=== PATIENT | female | born 1940 | race Asian ===

== ENCOUNTER 2022-11-02 17:43 | Inpatient (IN) ==
--- NOTE | 2022-11-02 18:42 | Emergency Department Note ---
History of Present Illness General Chief Complaint: Abnormal Labs/Diagnostic Testing Stated Complaint: REF BY DOC,NEW MEDS,ABNORMAL LAB Time Seen by Provider: 11/02/22 18:09 History of Present Illness Provider Complaint: + abnormal lab Description of abnormal result: elevated K BUN and Cr Associated symptoms: no fever, no chills, no chest pain, no shortness of breath, no rash, no malaise or no abdominal pain HPI narrative: [facility] Home Medications Medication Instructions Recorded Confirmed Type No Known Home Medications 11/02/22 11/02/22 History Past Med/Surg History Medical History Arthritis CKD (chronic kidney disease) Gout HTN (hypertension) Social History Smoking Status: Never smoker Preferred Language: Luxembourgish Feels Safe at Home: Yes Physical Exam Vital Signs: Vital Signs - 24 hr 11/02/22 17:49 11/02/22 18:08 11/02/22 18:19 Pulse Rate 91 H 86 85 Pulse Rate [Right Brachial] Pulse Rhythm Regular Regular Pulse Rhythm [Righ t Brachial] Pulse Strength Normal Pulse Strength [Ri ght Brachial] Respiratory Rate 20 18 Respiratory Effort / Characteristics Non-Labored Sponta neous Respiratory Depth Normal Respiratory Patter n Regular Blood Pressure 158/80 H Blood Pressure [Ri ght Arm] Blood Pressure Lila n 106 Blood Pressure Lila n [Right Arm] Blood Pressure Pos ition Sitting Blood Pressure Pos ition [Right Arm] Pulse Oximetry 96 95 Oxygen Delivery Me thod Room Air Room Air Sepsis Recent Feve r Within 48 Hours No Sepsis New/Unexpla ined Change in Men ben Status No Sepsis Action Take n by Nursing No Action Required 11/02/22 18:41 Pulse Rate Pulse Rate [Right Brachial] 72 Pulse Rhythm Pulse Rhythm [Righ t Brachial] Regular Pulse Strength Pulse Strength [Ri ght Brachial] Normal Respiratory Rate 19 Respiratory Effort / Characteristics Non-Labored Sponta neous Respiratory Depth Normal Respiratory Patter n Regular Blood Pressure Blood Pressure [Ri ght Arm] 171/72 H Blood Pressure Lila n Blood Pressure Lila n [Right Arm] 105 Blood Pressure Pos ition Blood Pressure Pos ition [Right Arm] Lying Pulse Oximetry 94 Oxygen Delivery Me thod Room Air Sepsis Recent Feve r Within 48 Hours Sepsis New/Unexpla ined Change in Men ben Status Sepsis Action Take n by Nursing Physical Exam: Physical Exam GENERAL: oriented to person, place, and time. appears well-developed and well- nourished. HENT: Exam performed. - Head: Normocephalic and atraumatic. EYES: Conjunctivae and EOM are normal. Right eye exhibits no discharge. Left eye exhibits no discharge. No scleral icterus. NECK: Normal range of motion. Neck supple. No JVD present. CV: Normal rate, regular rhythm, normal heart sounds and intact distal pulses. There is no peripheral edema. Palpable radial pulses bue. PULM/CHEST: Effort normal and breath sounds normal. No respiratory distress. No stridor. no wheezes. no rales. ABD: The abdomen is soft. There is no tenderness. NEURO: Motor and sensation grossly intact. SKIN: Skin is warm and dry. He is not diaphoretic. PSYCH: normal mood and affect. Behavior is normal. Judgment and thought content normal. Course Course 1808: The patient was evaluated in room C11. A complete history and physical exam was performed Administered Medications Discontinued Medications Amlodipine Besylate (Amlodipine Besylate 5 Mg Tab) 5 mg PO NOW ONE Stop: 11/02/22 18:48 Last Admin: 11/02/22 18:51 Dose: 5 mg Documented By: CANDY Medical Decision Making Medical Records Attestation: I reviewed the patient's medical records. External medical records. 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 Patient had blood work today which showed BUN of 48 creatinine of 2.4 potassium of 6.1. Laboratory Data Attestation: I reviewed the patient's lab results. 11/02/22 18:07 Lab Results 11/02/22 Range/Units 18:07 Sodium 137 (136-145) mmol/L Potassium 5.8 H (3.5-5.1) mmol/L Chloride 109 H (98-107) mmol/L Carbon Dioxide 18 L (21-32) mmol/L Anion Gap 10 (3-11) BUN 51 H (6-23) mg/dl Creatinine 2.39 H (0.6-1.2) mg/dl Est Cr Clr Drug Dosing 15.0 ml/min Est GFR ( Amer) 21.5 ml/min Est GFR (Non-Af Amer) 18.5 ml/min BUN/Creatinine Ratio 21.3 H (10-20) Glucose 129 H (70-99(Fasting)) mg/dl Calcium 9.2 (8.6-10.3) mg/dl ECG Data Attestation: I personally reviewed and interpreted this ECG as follows: Indication: other (arrythmia) Rate (beats per minute): 87 Rhythm: normal sinus Findings: no peaked T-waves, no ST depression, no ST elevation or no prolonged QT Additional Comments: QRS 68 MDM Narrative Cardiac monitoring: An order was placed for continuous cardiac monitoring. The monitor shows a rate of 90 with sinus rhythm interpreted by me Vital signs stable. Labs show potassium 5.8. Discussed the case with the patient's crusher foreman Dr. Coronado recommends admission for treatment for hyperkalemia and she will evaluate the patient in the inpatient setting. Dr. Gómez [facility] hospitalist was made aware. Patient and family are in agreement. Impression & Plan Acute hyperkalemia Critical Care Time Critical Care Time: Yes Total Critical Care Time: 45 I have personally spent greater than 45 minutes of critical care time in the direct management of this patient. This includes bedside care, interpretation of diagnostic studies, and testing, discussion with consultants, patient, and family members, and other required patient management activities. This 45 minutes is in excess of all separately billable procedures. Discharge Plan Visit Data Chief Complaint: Abnormal Labs/Diagnostic Testing Stated Complaint: REF BY DOC,NEW MEDS,ABNORMAL LAB ED Provider: Walter Headley Discharge Problem: Acute hyperkalemia Patient Disposition: Admitted As Inpatient Forms Stand Alone Forms: My [facility] Prescriptions Prescriptions: No Action No Known Home Medications Referrals Referrals: Guido Real MD [Physician] -
[2022-11-02 18:45] LABS: BUN Creatinine Ratio 21.3 (10-20); Calcium 9.2 mg/dl (8.6-10.3); Est GFR (African American) 21.5 ml/min; Est GFR (Non-African American) 18.5 ml/min; Potassium 5.8 mmol/L (3.5-5.1)
[2022-11-02] MEDS ORDERED: amLODIPine BESYLATE 5 MG TAB PO ONE (18:47)
[2022-11-02] MEDS ORDERED: DEXTROSE 50% 50 ML SYRINGE IV STA (19:43)
[2022-11-02] MEDS ORDERED: STAT IV STA (19:43)
[2022-11-02] MEDS ORDERED: INSULIN HUMAN REGULAR PER UNIT 10 UNITS in SYRINGE 9.9 ML IV STA (19:43)
[2022-11-02] MEDS ORDERED: CALCIUM GLUCONATE 10% 1,000 MG in DEXTROSE 5% 50 ML IV STA (19:43)
[2022-11-02] MEDS ORDERED: SODIUM CHLORIDE 0.9% 1000ML 1,000 ML IV ONE (20:19)
--- NOTE | 2022-11-02 23:45 | History & Physical Report ---
Date of Service November 02, 2022 Assessment & Plan (1) Acute hyperkalemia: Plan: Persistent hyperkalemia for the last 2 weeks ARF on CKD NAGMA secondary to above HTN, slightly elevated hyperlipidemia, statin Rx prediabetes, outpatient hemoglobin A1c of 6 from August 2022 Medical telemetry Baseline UA Monitor serum potassium, creatinine response to IVF Sodium bicarb 1 dose now Hold enalapril, Lasix for now Low potassium diet Nephrology consult Re: Hyperkalemia, ARF on CKD DVT prophylaxis. Heparin subcu Full code Patient daughter requesting updates from providers. Ms. Nahid Sanabria, contact #[phone]. Text document was generated using [employer] voice recognition software. It may contain grammatical or spelling errors. Kindly contact undersigned for clarification of any documentation item in question. History of Present Illness Chief Complaint: abormal blood work Primary Care Provider: Chata Eli PA-C History obtained from patient, family, and records. Medical history significant for HTN, hyperlipidemia, prediabetes, CRI (baseline creatinine 2s), gout. Patient started by [facility] agent on Aldactone for BP control 3 months ago. Outpatient renal ultrasound showed bilateral renal cortical echogenicity consistent with chronic kidney disease. Partially imaged hepatic cysts and simple appearing renal cyst and do not require follow-up. Serum potassium of 6.2, creatinine of 2.5 noted on outpatient blood work last 10/20/22. Patient denies chest pain, SOB, fluid retention, headache. Denies NSAID intake. Patient instructed to stop Aldactone. Lasix added to BP regimen interim. SBP at home 1 20-1 40s as per patient. Outpatient follow-up blood work today at the office noted to have abnormal results. Serum potassium 6.1, CO2 20, creatinine 2.4. Patient denies any symptoms. Patient directed to ER for evaluation. Calcium gluconate, IV insulin with dextrose administered at the ER. 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 Allergies Allergy/AdvReac Type Severity Reaction Status Date / Time No Known Allergies Allergy Unverified 11/02/22 21:03 Home Medications Medication Instructions Recorded Confirmed Type allopurinol 100 mg tablet 100 mg PO QAM 11/02/22 11/02/22 History amlodipine 5 mg tablet 5 mg PO AMHS 11/02/22 11/02/22 History cholecalciferol (vitamin D3) 125 125 mcg PO QAM 11/02/22 11/02/22 History mcg (5,000 unit) tablet (Vitamin D3) enalapril maleate 20 mg tablet 20 mg PO AMHS 11/02/22 11/02/22 History furosemide 20 mg tablet 20 mg PO Q OTHER DAY 11/02/22 11/02/22 History magnesium sulfate 100 mg capsule 100 mg PO QAM 11/02/22 11/02/22 History multivitamin 1 tab PO QAM 11/02/22 11/02/22 History rosuvastatin 10 mg tablet 10 mg PO QAM 11/02/22 11/02/22 History Past Med/Surg History Medical History Arthritis CKD (chronic kidney disease) Gout HTN (hypertension) Social History Smoking Status: Never smoker Second Hand Exposure: No; Do You Dip or Chew Tobacco: No; Tobacco Cessation Education Requested by Patient: No Hx Alcohol Use: No Hx Substance Use: No Preferred Language: Urdu Communication Ability: Effective Sales Agent Required: No Beliefs That Will Affect Care: None Current Living Situation: Family Other Information That Helps Us Care for You: No Feels Safe at Home: Yes Safety Concerns: Feels Safe At This Time Assistive Devices: Cane Review of Systems Review of Systems: As per HPI, all other systems reviewed and negative Physical Exam Physical Exam: GENERAL: Comfortable, pleasant, looks younger than stated age, no respiratory distress SKIN: Normal color, warm HEENT: Gervais palpebral conjunctivae, no ptosis, dry buccal mucosa NECK : Supple, no tenderness CHEST : CTA, no tenderness HEART : RRR, systolic murmur ABDOMEN: Some distention, nontender EXTREMITIES : No LE swelling/tenderness, no other conspicuous deformities noted NEUROLOGIC : Coherent, no facial asymmetry, no other gross focality Results & Data Results & Data Vital Signs (Past 12 Hours) Vital Signs Pulse Pulse Resp BP BP Pulse Ox O2 Del Method 11/02/22 22:05 71 11/02/22 22:00 64 18 142/63 H 95 11/02/22 21:30 85 20 152/57 H 95 11/02/22 21:00 94 H 18 171/72 H 97 11/02/22 20:30 82 18 167/66 H 94 11/02/22 20:00 67 21 147/57 H 94 11/02/22 19:30 72 18 147/59 H 95 11/02/22 18:55 85 33 H 167/74 H 11/02/22 18:30 90 25 H 99 11/02/22 18:28 91 H 20 171/72 H 97 11/02/22 18:08 87 20 11/02/22 18:41 72 19 171/72 H 94 Room Air 11/02/22 18:19 85 18 95 Room Air 11/02/22 18:08 86 11/02/22 17:49 91 H 20 158/80 H 96 Room Air Laboratory Results Laboratory Results Sodium 137 mmol/L (136-145) 11/02/22 18:07 Potassium 5.8 mmol/L (3.5-5.1) H 11/02/22 18:07 Chloride 109 mmol/L (98-107) H 11/02/22 18:07 Carbon Dioxide 18 mmol/L (21-32) L 11/02/22 18:07 Anion Gap 10 (3-11) 11/02/22 18:07 BUN 51 mg/dl (6-23) H 11/02/22 18:07 Creatinine 2.39 mg/dl (0.6-1.2) H 11/02/22 18:07 Est Cr Clr Drug Dosing 15.0 ml/min 11/02/22 18:07 Est GFR ( Amer) 21.5 ml/min 11/02/22 18:07 Est GFR (Non-Af Amer) 18.5 ml/min 11/02/22 18:07 BUN/Creatinine Ratio 21.3 (10-20) H 11/02/22 18:07 Glucose 129 mg/dl (70-99(Fasting)) H 11/02/22 18:07 POC Glucose 88 mg/dl (70-99) 11/02/22 22:17 Calcium 9.2 mg/dl (8.6-10.3) 11/02/22 18:07 SARS-CoV-2, RNA, NAAT NEGATIVE (NEGATIVE) 11/02/22 20:23 Diagnostic Findings Chest x-ray as per my interpretation borderline cardiomegaly, atelectasis EKG as per my interpretation :Rate 85, NSR, normal axis, no ischemia
[2022-11-02] MEDS ORDERED: traMADol HCL 50 MG TABLET PO PRN (23:49)
[2022-11-03 00:22] LABS: Base Excess VBG -5.4 mEq/L; HCO3 VBG 19 mmol/L; PCO2 VBG 34 mmHg (38-50); PO2 VBG 41 mmHg; pH VBG 7.36 (7.36-7.41)
[2022-11-03 00:33] LABS: Basophils # (auto) 0.02 K/uL (0-0.2); Basophils % (auto) 0.3 %; Eosinophils # (auto) 0.18 K/uL (0-0.50); Eosinophils % (auto) 2.5 %; Hematocrit (blood only) 39.5 % (37.0-47.0); Hemoglobin 13.5 g/dl (12.0-16.0); Immature Granulocytes # (auto) 0.03 K/uL (0.01-0.20); Immature Granulocytes % (auto) 0.4 %; Lymphocytes # (auto) 1.44 K/uL (1.2-3.4); Lymphocytes % (auto) 20.3 %; Mean Corpuscular Hgb Conc 34.2 g/dL (32.0-36.0); Mean Corpuscular Volume 84.8 fL (80.0-100.0); Mean Platelet Volume 12.1 fL (9.4-12.4); Monocytes # (auto) 0.41 K/uL (0.11-0.59); Monocytes % (auto) 5.8 %; Neutrophils # (auto) 5.03 K/uL (1.40-6.50); Neutrophils % (auto) 70.7 %; Platelet Count 207 K/uL (130-400); RDW Coefficient of Variation 14.5 % (11.5-14.5); RDW Standard Deviation 44.1 fL (36.4-46.3); Red Blood Count 4.66 M/uL (4.20-5.40); White Blood Count 7.11 K/ul (4.8-10.8)
[2022-11-03 00:44] LABS: BUN Creatinine Ratio 21.9 (10-20); Calcium 9.3 mg/dl (8.6-10.3); Est GFR (African American) 23.2 ml/min; Est GFR (Non-African American) 20.1 ml/min; Potassium 5.4 mmol/L (3.5-5.1)
[2022-11-03] MEDS ORDERED: SODIUM BICARB 8.4% INJ 50 MEQ/50 ML SYR IV STA (02:44)
[2022-11-03] MEDS: HEPARIN SOD 5,000 UNIT/0.5 ML VIAL SQ SCH ×3 (05:12→22:23)
[2022-11-03 06:31] LABS: Basophils # (auto) 0.02 K/uL (0-0.2); Basophils % (auto) 0.3 %; Eosinophils # (auto) 0.23 K/uL (0-0.50); Eosinophils % (auto) 3.8 %; Hematocrit (blood only) 35.6 % (37.0-47.0); Hemoglobin 12.1 g/dl (12.0-16.0); Immature Granulocytes # (auto) 0.02 K/uL (0.01-0.20); Immature Granulocytes % (auto) 0.3 %; Lymphocytes # (auto) 1.46 K/uL (1.2-3.4); Lymphocytes % (auto) 23.9 %; Mean Corpuscular Hemoglobin 28.5 pg (25.0-34.0); Mean Platelet Volume 12.1 fL (9.4-12.4); Monocytes # (auto) 0.32 K/uL (0.11-0.59); Monocytes % (auto) 5.2 %; Neutrophils # (auto) 4.07 K/uL (1.40-6.50); Neutrophils % (auto) 66.5 %; Platelet Count 176 K/uL (130-400); RDW Coefficient of Variation 14.1 % (11.5-14.5); RDW Standard Deviation 42.9 fL (36.4-46.3); Red Blood Count 4.24 M/uL (4.20-5.40); White Blood Count 6.12 K/ul (4.8-10.8)
[2022-11-03 06:36] LABS: BUN Creatinine Ratio 21.2 (10-20); Calcium 8.8 mg/dl (8.6-10.3); Creatinine Clr Calc Pharmacy 16.7 ml/min; Est GFR (African American) 24.8 ml/min; Est GFR (Non-African American) 21.4 ml/min; Potassium 5.6 mmol/L (3.5-5.1)
--- NOTE | 2022-11-03 07:05 | XRay Report ---
XR chest 1V portable HISTORY: Renal failure. COMPARISON: None. FINDINGS: Possible 3.9 cm left infrahilar lobular density. The right lung is clear. The cardiac stent was top normal in size. No pleural effusions. No pneumothorax. No new focal lung consolidations to s uggest a pneumonia. IMPRESSION: A possible 3.9 cm left infrahilar lobular density. Repeat PA and lateral views of the chest are recom mended to exclude a pulmonary lesion. ACT 112: Negative or not required by law. Electronically signed by: Huy Ohara M.D. 11/03/2022 7:04 AM
--- NOTE | 2022-11-03 07:53 | Nephrology Consultation ---
Date of Consultation November 03, 2022 Assessment & Plan (1) Hyperkalemia: improving but still present -dose patiromer x 1 -lasix x one dose 10 mg IV -continue low K diet -started sodium bicarbonate 650 mg bid, first dose 1400 today -recheck bmp 1700 ordered (2) CKD (chronic kidney disease), stage IV: at baseline; continue to follow w/ OP nephro and CKD Case Mgt -will need hospital d/c appt w/ me w/in 7-10 days of d/c (3) HTN (hypertension): controlled at home on enalapril 20 mg bid, amlodipine 5 mg bid, aldactone 12.5 mg daily; latter stopped and started on lasix 20 mg every other day on 10/20 w/ little change in K and no interval BP readings from home >BP here on lower side for now > continue amlodipine 5 mg bid; gave one time lasix dose 10 mg -monitor History of Present Illness Reason for Consultation: hyperkalemia Requesting Physician: Dr Good Attending Physician: Carrillo Landaverde MD History of Present Illness 82 y/o F whom I'm asked to see for hyperkalemia [facility] after failing OP management for same. PMH includes CKD 4 w/ baseline creatinine low/mid 2's and > 3 gm albuminuria, uncontrolled HTN, OA, remote ferraro's palsy, gout. Pt follows w/ CKD manager case management and w/ remote home BP monitoring through nephro. BP has been averaging in 130s prior to recent med changes. We have been working to control BP and improve renal outcomes w/ ACEI/ARB and octavio antagonist. She has had hyperkalemia though w/ this therapy > on 10/20 w/ K 6.2 we stopped aldactone 12.5 mg daily and started lasix every other day 20 mg and continued ACEI. some challenges getting recheck labs on schedule but when obtained they were essentially unchanged w/ K 6.1. In ER pt received 10 units insulin, sodium bicarb; started on NS. Concern for L lung mass on admission imaging and CT chest report pending. she slept very poorly d/t being in hospital; overall feels well > denies edema, chest pain, dyspnea, orthopnea, new/worrisome voiding concerns, decreased po, n/v/d, or acute illness/fever. Allergies Allergy/AdvReac Type Severity Reaction Status Date / Time No Known Allergies Allergy Unverified 11/02/22 21:03 Home Medications Medication Instructions Recorded Confirmed Type allopurinol 100 mg tablet 100 mg PO QAM 11/02/22 11/02/22 History amlodipine 5 mg tablet 5 mg PO AMHS 11/02/22 11/02/22 History cholecalciferol (vitamin D3) 125 125 mcg PO QAM 11/02/22 11/02/22 History mcg (5,000 unit) tablet (Vitamin D3) enalapril maleate 20 mg tablet 20 mg PO AMHS 11/02/22 11/02/22 History furosemide 20 mg tablet 20 mg PO Q OTHER DAY 11/02/22 11/02/22 History magnesium sulfate 100 mg capsule 100 mg PO QAM 11/02/22 11/02/22 History multivitamin 1 tab PO QAM 11/02/22 11/02/22 History rosuvastatin 10 mg tablet 10 mg PO QAM 11/02/22 11/02/22 History Patient History Medical History Arthritis CKD (chronic kidney disease), stage IV with nephrotic range proteinuria Gout HTN (hypertension) Surgical History H/O: hysterectomy Family History Sister Eclampsia (toxemia of ) Mother Eclampsia (toxemia of ) Social History Smoking Status: Never smoker Second Hand Exposure: No; Do You Dip or Chew Tobacco: No; Tobacco Cessation Education Requested by Patient: No Hx Alcohol Use: No Hx Substance Use: No Preferred Language: Azeri Communication Ability: Effective Industrial Organizational Psychologist Required: No Beliefs That Will Affect Care: None Current Living Situation: Family Other Information That Helps Us Care for You: No Feels Safe at Home: Yes Safety Concerns: Feels Safe At This Time Assistive Devices: Cane Review of Systems Review of Systems: All systems reviewed & are unremarkable except as noted in HPI & below Physical Exam Constitutional: well developed, well nourished and cooperative; no acute distress Eyes: EOM intact bilaterally ENMT: Ears: no external ear abnormality Nose: no external nose abnormality Mouth: + dry oral mucous membranes Neck: no nuchal rigidity Respiratory: normal respiratory effort Auscultation: + diminished lung sounds Cardiovascular: RRR, no murmur, no edema Gastrointestinal (Abdomen): Inspection/Auscultation: normal bowel sounds Percussion/Palpation: abdomen soft; abdomen nontender Musculoskeletal: Extremities: strength 5/5 throughout Skin: no rashes, warm and dry Neurologic: sanders, fluent speech, no tremor Psychiatric: Orientation: alert and oriented x 3 Results & Data Vital Signs (Past 12 Hours) Vital Signs Temp Pulse Pulse Resp BP BP Pulse Ox 11/03/22 07:11 36.8 C 77 18 162/70 H 97 11/03/22 04:50 36.8 C 62 16 133/69 97 11/03/22 01:10 81 11/03/22 01:23 36.4 C L 88 18 167/74 H 97 11/03/22 00:30 71 21 96 11/03/22 00:00 81 21 149/63 H 96 11/02/22 23:30 87 21 170/68 H 97 11/02/22 23:00 71 19 143/55 H 95 11/02/22 22:30 69 18 149/64 H 95 11/02/22 22:05 71 11/02/22 22:00 64 18 142/63 H 95 11/02/22 21:30 85 20 152/57 H 95 11/02/22 21:00 94 H 18 171/72 H 97 11/02/22 20:30 82 18 167/66 H 94 11/02/22 20:00 67 21 147/57 H 94 O2 Del Method 11/03/22 07:11 Room Air 11/03/22 04:50 Room Air 11/03/22 01:10 11/03/22 01:23 Room Air 11/03/22 00:30 11/03/22 00:00 11/02/22 23:30 11/02/22 23:00 11/02/22 22:30 11/02/22 22:05 11/02/22 22:00 11/02/22 21:30 11/02/22 21:00 11/02/22 20:30 11/02/22 20:00 Laboratory Results 11/03/22 05:42 11/03/22 05:42 Diagnostic Findings cxr A possible 3.9 cm left infrahilar lobular density. Repeat PA and lateral views of the chest are recommended to exclude a pulmonary lesion. noncon CT chest pending
[2022-11-03] MEDS: allopurinoL 100 MG TAB PO SCH (08:05)
[2022-11-03] MEDS: ROSUVASTATIN CALCIUM 10 MG TAB PO SCH (08:06)
[2022-11-03] MEDS: MULTIVITAMIN TAB PO SCH (08:06)
[2022-11-03] MEDS: amLODIPine BESYLATE 5 MG TAB PO SCH ×2 (08:06→20:05)
--- NOTE | 2022-11-03 10:59 | Hospitalist Progress Note ---
Date of Service November 03, 2022 Assessment & Plan (1) Acute hyperkalemia: Plan: CKD 4 - K 5.8 --> 5.6 cre 2.3 --> 2.1 (baseline) - no ekg changes - Hold Lasix, enalapril - Nephro on board will consult Supervisor [employer] Possible left lung mass -Seen on chest x-ray -CT chest without contrast ordered HTN - continue Amlodipine hyperlipidemia, statin Rx prediabetes, outpatient hemoglobin A1c of 6 from August 2022 DVT prophylaxis. Heparin subcu Full code Disposition Anticipate discharge to home when medically stable Admission and Anticipated Discharge Date Admission Date: November 02, 2022 Subjective ff up for hyperkalemia, CKD 4, etc seen resting in bed, comfortable, not in distress States she feels fine overall Denies chest pain, shortness of breath, palpitations, dizziness, abdominal pain, nausea vomiting Voiding without any difficulties No fevers or chills No other symptom Review of Systems Review of Systems: all noted and negative except for above Physical Exam Physical Exam: General- oriented x 3, not in distress, speaks in sentences with no effort or accessory muscle use Head- atraumatic Eyes- PERRL, EOMI, anicteric ENT- oropharynx clear Neck- supple, no JVD, no adenopathy, no thyromegaly; carotids +2/2, no bruits appreciated Lungs- clear to auscultation bilaterally, no rales/wheezes Heart- normal rate, regular rhythm; no murmur, no gallop, no rub appreciated Abdomen- normal bowel sounds, nondistended, soft, nontender, no masses or hepatosplenomegaly Extremities- trace pretibial edema, no calf tenderness; peripheral pulses intact Neuro- alert, oriented x 3; CN 2-12 grossly intact; motor 5/5 bilaterally;sensation 100% on all extremities; no other gross focal neurologic deficits Skin- warm & dry Results & Data Results & Data Vital Signs (Past 12 Hours) Vital Signs Temp Pulse Pulse Resp BP BP Pulse Ox 11/03/22 07:11 36.8 C 77 18 162/70 H 97 11/03/22 04:50 36.8 C 62 16 133/69 97 11/03/22 01:10 81 11/03/22 01:23 36.4 C L 88 18 167/74 H 97 05/03/23 00:30 71 21 96 11/03/22 00:00 81 21 149/63 H 96 11/02/22 23:30 87 21 170/68 H 97 11/02/22 23:00 71 19 143/55 H 95 O2 Del Method 11/03/22 07:11 Room Air 11/03/22 04:50 Room Air 11/03/22 01:10 11/03/22 01:23 Room Air 11/03/22 00:30 11/03/22 00:00 11/02/22 23:30 11/02/22 23:00 all noted and reviewed including below
[2022-11-03] MEDS ORDERED: FUROSEMIDE INJ 20 MG/2 ML VIAL IV ONE (11:48)
[2022-11-03] MEDS: PATIROMER CALCIUM SORBITEX 8.4 GM PACK PO SCH (12:32)
--- NOTE | 2022-11-03 13:15 | Electrocardiogram Report ---
Test Reason : Blood Pressure : / mmHG Vent. Rate : 087 BPM Atrial Rate : 087 BPM P-R Int : 162 ms QRS Dur : 068 ms QT Int : 354 ms P-R-T Axes : 049 044 051 degrees QTc Int : 425 ms Normal sinus rhythm Nonspecific ST abnormality Abnormal ECG No previous ECGs available Confirmed by Yuan Price ([id number]) on 11/03/2022 1:15:30 PM Referred By: Lynnette Fan Confirmed By:Yuan Price
[2022-11-03 13:45] LABS: Appearance Urine Clear (Clear); Bacteria Urine Automated Negative (Negative); Bilirubin Urine Negative (Negative); Blood Urine Negative (Negative); Color Urine Yellow; Epithelial Cell Urine Auto 0-5 /lpf (0-5); Glucose Urine UA Negative (Negative); Ketones Urine Negative (Negative); Leukocyte Esterase Urine Negative (Negative); Nitrite Urine Negative (Negative); Protein Urine 2+ (Negative); RBC Urine Automated 0-4 /hpf (0-4); Specific Gravity Urine 1.006 (1.000-1.030); Urobilinogen Urine Negative (Negative)
[2022-11-03] MEDS: SODIUM BICARBONATE 650 MG TAB PO SCH ×2 (13:53→20:05)
--- NOTE | 2022-11-03 16:36 | CT Scan Report ---
CT SCAN OF THE CHEST WITHOUT IV CONTRAST CLINICAL HISTORY: Abnormal chest x-ray. Possible left lung lesion. COMPARISON STUDY: Chest x-ray dated 11/02/2022. TECHNIQUE: CT scan of the thorax was performed from the thoracic inlet to the upper abdomen. Images are reviewed in the axial, sagittal, and coronal planes. IV contrast was not administered for this ex amination as per the referring clinician. A dose lowering technique was utilized ad[facility] to [facility] DOSE: 217.56 mGy.cm FINDINGS: Thyroid: Normal in size and heterogeneous in attenuation. Thoracic aorta: There is atherosclerotic calcification of the thoracic aorta, which is normal in kevin arlet and demonstrates standard 3-vessel arch anatomy. Heart: The heart is normal in size and without pericardial effusion. The coronary arteries are densel y calcified. Lungs and pleural spaces: There is a 3.9 x 3.6 x 3.2 cm round mass lesion in the left lower lobe seen on axial image #162. This corresponds to the lesion seen by chest x-ray. Groundglass consolidation i s seen at the left lung base and there is trace left pleural effusion. No additional pulmonary lesion is identified. The right lung appears clear noting mild basilar atelectasis. The trachea and central airways are clear. Mediastinum: There is no mediastinal lymphadenopathy. Sue: Not well assessed without IV contrast. Axillae: There is no axillary lymphadenopathy. Upper abdomen: There are calcified gallstones. A small hiatal hernia is noted. Skeletal structures: The skeletal structures are osteopenic. No lytic or blastic bony lesions are see n. IMPRESSION: 1. There is a 3.9 cm round mass lesion in the left lower lobe. This corresponds to the abnormality se en by chest x-ray and a neoplasm is the diagnosis of exclusion. A primary bronchogenic tumor or possi erika carcinoid are the primary differential considerations. Pulmonology follow-up is recommended. 2. There is groundglass consolidation and a small pleural effusion at the left lung base. This likely represents a mild infectious/inflammatory pneumonitis. Correlate clinically. 3. No additional pulmonary lesion is identified. 4. There is no mediastinal lymphadenopathy 5. Cholelithiasis. 6. Additional findings as above. ACT 112: Positive. There are findings on this exam that require communication between the performing entity and the patient following Patient Test Result Information Act ([place] Act 112) guidelines. Electronically signed by: Faisal Martinez M.D. 11/03/2022 4:35 PM
[2022-11-03 17:25] LABS: BUN Creatinine Ratio 19.5 (10-20); Calcium 8.6 mg/dl (8.6-10.3); Creatinine Clr Calc Pharmacy 16.1 ml/min; Est GFR (African American) 23.8 ml/min; Est GFR (Non-African American) 20.5 ml/min
[2022-11-04] MEDS: HEPARIN SOD 5,000 UNIT/0.5 ML VIAL SQ SCH ×2 (06:58→14:02)
[2022-11-04 09:04] LABS: Basophils # (auto) 0.01 K/uL (0-0.2); Basophils % (auto) 0.2 %; Eosinophils # (auto) 0.36 K/uL (0-0.50); Eosinophils % (auto) 6.4 %; Hematocrit (blood only) 40.5 % (37.0-47.0); Hemoglobin 13.7 g/dl (12.0-16.0); Immature Granulocytes # (auto) 0.02 K/uL (0.01-0.20); Immature Granulocytes % (auto) 0.4 %; Lymphocytes # (auto) 1.74 K/uL (1.2-3.4); Lymphocytes % (auto) 30.7 %; Mean Corpuscular Hemoglobin 28.5 pg (25.0-34.0); Mean Corpuscular Hgb Conc 33.8 g/dL (32.0-36.0); Mean Corpuscular Volume 84.4 fL (80.0-100.0); Mean Platelet Volume 12.5 fL (9.4-12.4); Monocytes # (auto) 0.19 K/uL (0.11-0.59); Monocytes % (auto) 3.4 %; Neutrophils # (auto) 3.34 K/uL (1.40-6.50); Neutrophils % (auto) 58.9 %; Platelet Count 179 K/uL (130-400); RDW Coefficient of Variation 14.3 % (11.5-14.5); RDW Standard Deviation 44.1 fL (36.4-46.3); White Blood Count 5.66 K/ul (4.8-10.8)
[2022-11-04 09:16] LABS: BUN Creatinine Ratio 18.9 (10-20); Est GFR (African American) 23.5 ml/min; Est GFR (Non-African American) 20.3 ml/min; Magnesium 1.9 mg/dl (1.7-2.4); Phosphorus 4.7 mg/dl (2.5-4.9)
[2022-11-04] MEDS: allopurinoL 100 MG TAB PO SCH (09:16)
[2022-11-04] MEDS: MULTIVITAMIN TAB PO SCH (09:16)
[2022-11-04] MEDS: SODIUM BICARBONATE 650 MG TAB PO SCH (09:16)
[2022-11-04] MEDS: amLODIPine BESYLATE 5 MG TAB PO SCH (09:16)
[2022-11-04] MEDS: ROSUVASTATIN CALCIUM 10 MG TAB PO SCH (09:16)
[2022-11-04] MEDS ORDERED: DOXYCYCLINE HYCLATE 100 MG CAP PO SCH (10:45)
--- NOTE | 2022-11-04 10:55 | Nephrology Progress Note ---
Date of Service November 04, 2022 Assessment & Plan (1) Hyperkalemia: Plan: K still borderline -continue low K diet -continue patiromer while in house -continue sodium bicarbonate 650 mg bid -start torsemide as below NEPHRO D/C RECS -d/c on -sodium bicarb 650 mg bid -amlodipine 5 mg po bid -torsemide 5 mg daily -hold acei/octavio antagonist at d/c -lower K diet pls at d/c -bmp early next week and weekly x 3 more checks to be ordered by nephro RN -hospital d/c appt w/ me in 7-10 days -ok to cancel appt w/ neph PA later this month (2) CKD (chronic kidney disease), stage IV: Plan: at baseline; continue to follow w/ OP nephro and CKD Case Mgt -will need hospital d/c appt w/ me w/in 7-10 days of d/c (3) HTN (hypertension): Plan: controlled at home on enalapril 20 mg bid, amlodipine 5 mg bid, aldactone 12.5 mg daily; latter stopped and started on lasix 20 mg every other day on 10/20 w/ little change in K and no interval BP readings from home >BP here on lower side for now on > amlodipine 5 mg bid; gave one time lasix dose 10 mg IV >some bradycardia noted w/ CCB trial of torsemide 5 mg daily, amlodipine 5 mg daily >> would like to introduce ACEI as well >had amlo 5 mg ; will give torse 5 mg now and observe; consider acei later today depending on readings (4) Lung mass: Plan: she desires conservative mgt; not interested even in pulm dx w/u Admission and Anticipated Discharge Date Admission Date: November 02, 2022 Subjective feeling well; no c/o; aware of lung findings;no sob, edema, presyncopal sx, n/v, or weakness Review of Systems Review of Systems: All systems reviewed & are unremarkable except as noted in Subjective Physical Exam Constitutional: well developed, well nourished and cooperative; no acute distress Eyes: EOM intact bilaterally ENMT: Ears: no external ear abnormality Nose: no external nose abnormality Mouth: + dry oral mucous membranes Neck: no nuchal rigidity Respiratory: normal respiratory effort Auscultation: + diminished lung sounds and + crackles (L base) Cardiovascular: RRR, no murmur, no edema Gastrointestinal (Abdomen): Inspection/Auscultation: normal bowel sounds Percussion/Palpation: abdomen soft; abdomen nontender Musculoskeletal: Extremities: strength 5/5 throughout Skin: no rashes, warm and dry Neurologic: sanders, fluent speech, no tremor Psychiatric: Orientation: alert and oriented x 3 Results & Data Vital Signs (Past 12 Hours) Vital Signs Temp Pulse Pulse Resp BP Pulse Ox O2 Del Method 11/04/22 07:58 36.6 C 55 L 17 145/66 H 95 Room Air 11/04/22 03:29 36.6 C 52 L 20 120/65 93 Room Air 11/03/22 23:24 53 L 11/03/22 23:04 36.7 C 56 L 18 117/51 L 95 Room Air Laboratory Results 11/04/22 08:28 11/04/22 08:[address] 1. There is a 3.9 cm round mass lesion in the left lower lobe. This corresponds to the abnormality seen by chest x-ray and a neoplasm is the diagnosis of exclusion. A primary bronchogenic tumor or possibly carcinoid are the primary differential considerations. Pulmonology follow-up is recommended. 2. There is groundglass consolidation and a small pleural effusion at the left lung base. This likely represents a mild infectious/inflammatory pneumonitis. Correlate clinically. 3. No additional pulmonary lesion is identified. 4. There is no mediastinal lymphadenopathy 5. Cholelithiasis. 6. Additional findings as above.
[2022-11-04] MEDS ORDERED: TORSEMIDE 10 MG TAB PO SCH (11:00)
--- NOTE | 2022-11-04 11:14 | Pulmonary Consultation ---
Date of Consultation November 04, 2022 Assessment & Plan (1) Lung mass: (2) Pneumonia: (3) Abnormal chest CT: Plan CT chest 11/03/2022 personally reviewed: Left lower lobe posterior segment 3.2 x 3.6 cm mass with possible postobstructive pneumonia in the left lower lobe No significant mediastinal lymphadenopathy -- Pulmonary mass Possibility of lung cancer is high There is an area going to the pulmonary mass Navigational bronchoscopy could be thought of -- Groundglass opacities in the left lower lobe Distal to the pulmonary mass Postobstructive pneumonia is a possibility Would recommend to continue with antibiotics for total of 5 days Plan: I did discuss the finding with the patient. I discussed the options going forward which includes biopsy to know what it is and if it is positive then consider chemo or radiation Patient understands and would not like to pursue with any procedures right now. She says she has lived a good life she is 82 years old and would not want any invasive procedures I did let her know that if she or her family changes her mind she can always let us know. Patient's daughter is also a nurse here. If she has any questions. She can also reach out to me anytime Case was discussed with Dr. Landaverde, as well as GRACE Myles at bedside All questions inquiries of the patient were answered in depth. Please note the above document was generated using voice recognition software. It may contain grammatical, syntax or spelling errors.Any formal questions or concerns about the content, text or information contained within the body of this dictation should be directly addressed to the provider for clarification. History of Present Illness Attending Physician: Carrillo Landaverde MD History of Present Illness 82-year-old pleasant female was admitted to the hospital because of hyperkalemia Past medical history: Hypertension, dyslipidemia, prediabetes, CKD Pulmonary consulted for abnormal chest CT At the time of examination patient was not in any respiratory distress She was saturating 95 to 96% on room air. She denied any chest pain, no shortness of breath, no headache, no blurry vision No nausea or vomiting No abdominal pain. Fair appetite No night sweats, no unintentional weight loss. No difficulty swallowing. Social history: Lifetime non-smoker, no alcohol. 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 No history of lung cancer in the family Allergies Allergy/AdvReac Type Severity Reaction Status Date / Time No Known Allergies Allergy Unverified 11/02/22 21:03 Home Medications Medication Instructions Recorded Confirmed Type allopurinol 100 mg tablet 100 mg PO QAM 11/02/22 11/02/22 History amlodipine 5 mg tablet 5 mg PO AMHS 11/02/22 11/02/22 History cholecalciferol (vitamin D3) 125 125 mcg PO QAM 11/02/22 11/02/22 History mcg (5,000 unit) tablet (Vitamin D3) magnesium sulfate 100 mg capsule 100 mg PO QAM 11/02/22 11/02/22 History multivitamin 1 tab PO QAM 11/02/22 11/02/22 History rosuvastatin 10 mg tablet 10 mg PO QAM 11/02/22 11/02/22 History doxycycline hyclate 100 mg capsule 100 mg PO BID 7 days #14 caps 11/04/22 Rx sodium bicarbonate 650 mg tablet 650 mg PO BID 30 days #60 tabs 11/04/22 Rx torsemide 10 mg tablet 5 mg PO QAM 30 days #15 tabs 11/04/22 Rx Patient History Medical History (Updated 11/04/22 @ 17:35 by Faisal Lim MD, [facility]) Arthritis CKD (chronic kidney disease), stage IV with nephrotic range proteinuria Gout HTN (hypertension) Lung mass new finding 11/2022 Surgical History H/O: hysterectomy Family History Sister Eclampsia (toxemia of ) Mother Eclampsia (toxemia of ) Social History Smoking Status: Never smoker Second Hand Exposure: No; Do You Dip or Chew Tobacco: No; Tobacco Cessation Education Requested by Patient: No Hx Alcohol Use: No Hx Substance Use: No Preferred Language: [place] Communication Ability: Effective [employer] Emergency Services Manager Required: No Beliefs That Will Affect Care: None Current Living Situation: Family Other Information That Helps Us Care for You: No Feels Safe at Home: Yes Safety Concerns: Feels Safe At This Time Assistive Devices: Cane Review of Systems Review of Systems: All systems reviewed & are unremarkable except as noted in HPI & below Physical Exam Physical Exam: Constitutional: No acute distress HEENT: EOMI, PERRLA Respiratory system: Good air entry bilaterally, no wheeze, no rhonchi, minimal crackles left lower lobe CVS: S1-S2 positive, no murmurs or gallops Abdomen: Soft, nontender, nondistended, positive bowel sounds x4 Extremities: +2 pulses bilaterally radialis/ dorsalis pedis, no cyanosis, no edema Neuro: Awake alert oriented x3 Psych: Normal mood and affect G/U: No Rodriguez Skin: no rashes, warm and dry Lymphatic: no cervical or axillary lymphadenopathy Results & Data Results & Data Vital Signs (Past 12 Hours) Vital Signs Temp Pulse Pulse Resp BP Pulse Ox O2 Del Method 11/04/22 07:58 36.6 C 55 L 17 145/66 H 95 Room Air 11/04/22 03:29 36.6 C 52 L 20 120/65 93 Room Air 11/03/22 23:24 53 L Laboratory Results 11/04/22 08:28 11/04/22 08:28 PG Care Time/CCT Total # of Minutes Spent Total Time Spent with Patient: Total time spent is greater than 50% in coordination of care (as documented) at patient's floor/unit and/or counseling patient: Coding Level of Care Code 77353 INT INP/OBS CARE 375MIN Diagnoses Lung mass R91.8 Pneumonia J18[address] R93.89
[2022-11-04] MEDS: PATIROMER CALCIUM SORBITEX 8.4 GM PACK PO SCH (11:34)
--- NOTE | 2022-11-04 14:14 | Hospitalist Progress Note ---
Date of Service November 04, 2022 Assessment & Plan (1) Acute hyperkalemia: Plan: CKD 4 - K 5.8 --> 5.6 cre 2.3 --> 2.1 (baseline) - no ekg changes - Hold Lasix, enalapril - Nephro on board will consult [employer] 11/04 K improved to 5.0 crea stable at 2.2 cleared for discharge by Nephro d/c recommendation: sodium bicarb 650 mg bid torsemide 5 mg daily repeat BMP in 7 days ff up with Nephro in 7-10 days Left lung mass -Seen on chest x-ray - asymptomatic -CT chest without contrast: 1. There is a 3.9 cm round mass lesion in the left lower lobe. This corresponds to the abnormality seen by chest x-ray and a neoplasm is the diagnosis of exclusion. A primary bronchogenic tumor or possibly carcinoid are the primary differential considerations. Pulmonology follow-up is recommended. 2. There is groundglass consolidation and a small pleural effusion at the left lung base. This likely represents a mild infectious/inflammatory pneumonitis. Correlate clinically. - discussed with patient that the mass is most likely malignant, she prefers NOT to proceed with any further diagnostic testing, nor does NOT wish any treatment including chemotherapy, surgery also discussed with her daughter Nahid Possible Pneumonia, Left lower lobe - seen on CT chest per above - Doxycycline 100mg BID x 7 days HTN stop Lisinopril continue Amlodipine hyperlipidemia, statin Rx prediabetes, outpatient hemoglobin A1c of 6 from August 2022 DVT prophylaxis. Heparin subcu Full code Disposition d/c home today ff up with PCP in 1 week Admission and Anticipated Discharge Date Admission Date: November 02, 2022 Subjective ff up for hyperkalemia, etc seen resting in bed, comfortable in good spirits states she feels fine overall no chest pain, dyspnea, palpitations, dizziness no abdominal pain, nausea/vomiting, muscle weakness no cough, shortness of breath, phlegm, fever/chills no other symptoms states she is ready for discharge today Review of Systems Review of Systems: all noted and negative except for above Physical Exam Physical Exam: General- oriented x 3, not in distress, speaks in sentences with no effort or accessory muscle use Eyes- anicteric Neck- no JVD Lungs- clear breath sounds bilaterally, no rales/wheezes Heart- normal rate, regular rhythm; no murmurs Abdomen- normal bowel sounds, nondistended, soft, nontender Extremities- no pretibial edema, no calf tenderness Neuro- alert, oriented x 3; no gross focal neurologic deficits Skin- warm & dry Results & Data Results & Data Vital Signs (Past 12 Hours) Vital Signs Temp Pulse Resp BP Pulse Ox O2 Del Method 11/04/22 11:46 36.7 C 55 L 18 160/63 H 95 Room Air 11/04/22 07:58 36.6 C 55 L 17 145/66 H 95 Room Air 11/04/22 03:29 36.6 C 52 L 20 120/65 93 Room Air all noted and reviewed including below
--- NOTE | 2022-11-04 16:12 | Discharge Summary ---
Discharge Summary Date of Service November 04, 2022 Notes For Next Care Provider Repeat BMP in 1 week after discharge from the hospital Medication Changes From Visit YOUR NEW MEDICATIONS INCLUDE: Sodium bicarbonate- for chronic kidney disease Torsemide - to prevent increase in potassium level Doxycycline- antibiotic for mild pneumonia STOP TAKING THE FOLLOWING MEDICATIONS: Enalapril Furosemide (Lasix) Admission HPI Per Admitting Provider History obtained from patient, family, and records. Medical history significant for HTN, hyperlipidemia, prediabetes, CRI (baseline creatinine 2s), gout. Patient started by [facility] [place] [place] on Aldactone for BP control 3 months ago. Outpatient renal ultrasound showed bilateral renal cortical echogenicity consistent with chronic kidney disease. Partially imaged hepatic cysts and simple appearing renal cyst and do not require follow-up. Serum potassium of 6.2, creatinine of 2.5 noted on outpatient blood work last 10/20/22. Patient denies chest pain, SOB, fluid retention, headache. Denies NSAID intake. Patient instructed to stop Aldactone. Lasix added to BP regimen interim. SBP at home 1 20-1 40s as per patient. Outpatient follow-up blood work today at the office noted to have abnormal results. Serum potassium 6.1, CO2 20, creatinine 2.4. Patient denies any symptoms. Patient directed to ER for evaluation. Calcium gluconate, IV insulin with dextrose administered at the ER. 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 Admission Exam Per Admitting Provider GENERAL: Comfortable, pleasant, looks younger than stated age, no respiratory distress SKIN: Normal color, warm HEENT: Mcmullen palpebral conjunctivae, no ptosis, dry buccal mucosa NECK : Supple, no tenderness CHEST : CTA, no tenderness HEART : RRR, systolic murmur ABDOMEN: Some distention, nontender EXTREMITIES : No LE swelling/tenderness, no other conspicuous deformities noted NEUROLOGIC : Coherent, no facial asymmetry, no other gross focality Principal Dx & Hospital Course #1 = Principal Diagnosis (1) Acute hyperkalemia: CKD 4 - K 5.8 --> 5.6 cre 2.3 --> 2.1 (baseline) - no ekg changes - Hold Lasix, enalapril - Nephro on board will consult T[employer] 11/04 K improved to 5.0 crea stable at 2.2 cleared for discharge by Nephro d/c recommendation: sodium bicarb 650 mg bid torsemide 5 mg daily repeat BMP in 7 days ff up with Nephro in 7-10 days Left lung mass -Seen on chest x-ray - asymptomatic -CT chest without contrast: 1. There is a 3.9 cm round mass lesion in the left lower lobe. This corresponds to the abnormality seen by chest x-ray and a neoplasm is the diagnosis of exclusion. A primary bronchogenic tumor or possibly carcinoid are the primary differential considerations. Pulmonology follow-up is recommended. 2. There is groundglass consolidation and a small pleural effusion at the left lung base. This likely represents a mild infectious/inflammatory pneumonitis. Correlate clinically. - discussed with patient that the mass is most likely malignant, she prefers NOT to proceed with any further diagnostic testing, nor does NOT wish any treatment including chemotherapy, surgery also discussed with her daughter Nahid Possible Pneumonia, Left lower lobe - seen on CT chest per above - Doxycycline 100mg BID x 7 days HTN stop Lisinopril continue Amlodipine hyperlipidemia, statin Rx prediabetes, outpatient hemoglobin A1c of 6 from August 2022 DVT prophylaxis. Heparin subcu Full code Disposition d/c home today ff up with PCP in 1 week Discharge Exam General- oriented x 3, not in distress, speaks in sentences with no effort or accessory muscle use Eyes- anicteric Neck- no JVD Lungs- clear breath sounds bilaterally, no rales/wheezes Heart- normal rate, regular rhythm; no murmurs Abdomen- normal bowel sounds, nondistended, soft, nontender Extremities- no pretibial edema, no calf tenderness Neuro- alert, oriented x 3; no gross focal neurologic deficits Skin- warm & dry Updated Medication List Medication Instructions Recorded Confirmed Type allopurinol 100 mg tablet 100 mg PO QAM 11/02/22 11/02/22 History amlodipine 5 mg tablet 5 mg PO AMHS 11/02/22 11/02/22 History cholecalciferol (vitamin D3) 125 125 mcg PO QAM 11/02/22 11/02/22 History mcg (5,000 unit) tablet (Vitamin D3) magnesium sulfate 100 mg capsule 100 mg PO QAM 11/02/22 11/02/22 History multivitamin 1 tab PO QAM 11/02/22 11/02/22 History rosuvastatin 10 mg tablet 10 mg PO QAM 11/02/22 11/02/22 History doxycycline hyclate 100 mg capsule 100 mg PO BID 7 days #14 caps 11/04/22 Rx sodium bicarbonate 650 mg tablet 650 mg PO BID 30 days #60 tabs 11/04/22 Rx torsemide 10 mg tablet 5 mg PO QAM 30 days #15 tabs 11/04/22 Rx Hospital Stay Data Consultations 11/02/22 19:06 ED Decision to Admit Stat 11/02/22 23:48 Consult Nephrology Routine Diagnostic Imagining Performed 11/03/22 08:18 CT chest diagnostic wo con Routine COMPARISON STUDY: Chest x-ray dated 11/02/2022. TECHNIQUE: CT scan of the thorax was performed from the thoracic inlet to the upper abdomen. Images are reviewed in the axial, sagittal, and coronal planes. IV contrast was not administered for this examination as per the referring clinician. A dose lowering technique was utilized adhering to the principles of ALARA. CT DOSE: 217.56 mGy.cm FINDINGS: Thyroid: Normal in size and heterogeneous in attenuation. Thoracic aorta: There is atherosclerotic calcification of the thoracic aorta, which is normal in caliber and demonstrates standard 3-vessel arch anatomy. Heart: The heart is normal in size and without pericardial effusion. The coronary arteries are densely calcified. Lungs and pleural spaces: There is a 3.9 x 3.6 x 3.2 cm round mass lesion in the left lower lobe seen on axial image #162. This corresponds to the lesion seen by chest x-ray. Groundglass consolidation is seen at the left lung base and there is trace left pleural effusion. No additional pulmonary lesion is identified. The right lung appears clear noting mild basilar atelectasis. The trachea and central airways are clear. Mediastinum: There is no mediastinal lymphadenopathy. Sue: Not well assessed without IV contrast. Axillae: There is no axillary lymphadenopathy. Upper abdomen: There are calcified gallstones. A small hiatal hernia is noted. Skeletal structures: The skeletal structures are osteopenic. No lytic or blastic bony lesions are seen. IMPRESSION: 1. There is a 3.9 cm round mass lesion in the left lower lobe. This corresponds to the abnormality seen by chest x-ray and a neoplasm is the diagnosis of exclusion. A primary bronchogenic tumor or possibly carcinoid are the primary differential considerations. Pulmonology follow-up is recommended. 2. There is groundglass consolidation and a small pleural effusion at the left lung base. This likely represents a mild infectious/inflammatory pneumonitis. Correlate clinically. 3. No additional pulmonary lesion is identified. 4. There is no mediastinal lymphadenopathy 5. Cholelithiasis. 6. Additional findings as above. ACT 112: Positive. There are findings on this exam that require communication between the performing entity and the patient following Patient Test Result Information Act ([place] Act 112) guidelines. Pending Results Patient Have Any Pending Studies at Discharge: Yes Discharge Instructions Given to Patient (Per Discharging Provider) PLEASE REFER TO YOUR NEW MEDICATION LIST AND FOLLOW INSTRUCTIONS CAREFULLY. YOUR NEW MEDICATIONS INCLUDE: Sodium bicarbonate- for chronic kidney disease Torsemide - to prevent increase in potassium level Doxycycline- antibiotic for mild pneumonia STOP TAKING THE FOLLOWING MEDICATIONS: Enalapril Furosemide (Lasix) Please follow low potassium diet. PLEASE CALL YOUR PRIMARY CARE PHYSICIAN OR RETURN TO THE ER IF WITH WORSENING OF SYMPTOMS, INCLUDING Weakness, nausea, fevers or chills, shortness of breath, chest pain, etc. FOLLOW UP WITH PRIMARY CARE PHYSICIAN IN 1 WEEK. FOLLOW-UP WITH DISTRICT CAPTAIN-DR. CONNIE RICHARDSON IN 7 TO 10 DAYS. Total Time Total Time Spent Total Time Spent (In Minutes): >30 minutes
== END 2022-11-04 18:29 | disposition home or self-care (01) | DRG 682 ==
LOC: ED 17:43 → 4W 23:47

== ENCOUNTER 2023-12-19 13:15 | Inpatient (IN) ==
--- NOTE | 2023-12-19 13:35 | ED Triage Note ---
Date of Service December 19, 2023 Provider in Triage Author: Cheryl Cisneros History of Present Illness This patient was briefly evaluated while in triage. An abbreviated physical exam was performed. This patient is a 83-year-old Female who presents to the ED for evaluation of abdominal pain and near syncope while eating lunch today. Had a sandwich and piece of cake for lunch. States feels completely better now. Had some diarrhea after eating, but no vomiting. Denies chest pain or shortness of breath. Physical Exam CONSTITUTIONAL: No acute distress. Well appearing. RESPIRATORY: Clear to auscultation bilaterally. Equal expansion bilaterally. CARDIOVASCULAR: Regular rate and rhythm. GASTROINTESTINAL: Soft, nontender. NEUROLOGIC: Alert and oriented X 4 with normal affect. Initial orders for labs and / or imaging were placed and patient was placed in the waiting area until a bed is available. Please see further documentation for the full ED course.
[2023-12-19 14:36] LABS: Basophils # (auto) 0.02 K/uL (0.00-0.20); Basophils % (auto) 0.2 %; Eosinophils # (auto) 0.19 K/uL (0.00-0.50); Eosinophils % (auto) 2.1 %; Hematocrit (blood only) 32.6 % (37.0-47.0); Hemoglobin 11.2 g/dl (12.0-16.0); Immature Granulocytes # (auto) 0.03 K/uL (0.01-0.20); Immature Granulocytes % (auto) 0.3 %; Lymphocytes # (auto) 1.38 K/uL (1.20-3.40); Lymphocytes % (auto) 15.5 %; Mean Corpuscular Hemoglobin 28.1 pg (25.0-34.0); Mean Corpuscular Hgb Conc 34.4 g/dL (32.0-36.0); Mean Corpuscular Volume 81.9 fL (80.0-100.0); Mean Platelet Volume 10.8 fL (9.4-12.4); Monocytes # (auto) 0.54 K/uL (0.11-0.59); Monocytes % (auto) 6.1 %; Neutrophils # (auto) 6.75 K/uL (1.40-6.50); Neutrophils % (auto) 75.8 %; Platelet Count 257 K/uL (130-400); RDW Standard Deviation 41.4 fL (36.4-46.3); Red Blood Count 3.98 M/uL (4.20-5.40); White Blood Count 8.91 K/ul (4.8-10.8)
[2023-12-19 15:16] LABS: INR 0.9 (0.9-1.1); Partial Thromboplastin Ratio 0.9; Partial Thromboplastin Time 24 Seconds (21-31)
[2023-12-19 15:18] LABS: Alanine Aminotransferase 12 U/L (7-52); Albumin Globulin Ratio 1.2 (0.9-2); Albumin Level 4.3 gm/dl (3.4-5.0); Alkaline Phosphatase 72 U/L (34-104); BUN Creatinine Ratio 17.3 (10-20); Bilirubin,Total 0.4 mg/dl (0.2-1.0); Blood Urea Nitrogen 45 mg/dl (6-23); Calcium 8.9 mg/dl (8.6-10.3); Carbon Dioxide 21 mmol/L (21-32); Chloride 97 mmol/L (98-107); Est GFR (African American) 19.3 ml/min; Est GFR (Non-African American) 16.6 ml/min; Globulin 3.5 gm/dl (2.5-4.0); Glucose 162 mg/dl (70-99(Fasting)); Lipase 93 U/L (11-82); Total Protein 7.8 gm/dl (6.0-8.3)
[2023-12-19 16:19] LABS: Magnesium 2.3 mg/dl (1.7-2.4); Potassium 4.9 mmol/L (3.5-5.1)
--- NOTE | 2023-12-19 17:20 | Electrocardiogram Report ---
Test Reason : Blood Pressure : / mmHG Vent. Rate : 059 BPM Atrial Rate : 059 BPM P-R Int : 146 ms QRS Dur : 064 ms QT Int : 414 ms P-R-T Axes : 039 034 059 degrees QTc Int : 409 ms Sinus bradycardia Nonspecific ST abnormality Abnormal ECG When compared with ECG of 02-NOV-2022 18:12, No significant change was found Confirmed by Eric Bradford ([id number]) on 12/19/2023 5:20:14 PM Referred By: Confirmed By:Eric Bradford
--- NOTE | 2023-12-19 17:33 | Emergency Department Note ---
Impression & Plan Acute hyponatremia, Syncope ED Provider Note Provider: Johnnie Mccain MD DATE OF SERVICE: 12/19/2023 CHIEF COMPLAINT: Near syncope abdominal cramping HISTORY OF PRESENT ILLNESS: Patient is a 83-year-old female history of hypertension, CKD, lung mass presenting here today reporting after lunch began to have some mid upper abdominal cramping and 1 episode of watery nonbloody diarrhea. States that symptoms have resolved now. States during this time just after lunch became near syncopal. States maybe this happened once in the past. Denies chest pain or shortness of breath. Denies palpitations. Denies vomiting or actually losing consciousness. EMS report evidently to triage with the patient did have a blank stare about a minute of possibly unresponsiveness. No falls or trauma reported. Patient actually very tired of waiting and had from the waiting room initially decided to leave without being seen after blood work was drawn. I did review her findings and have the charge nurse contact the patient and the rib to locate her sitting and from the hospital and she was agreeable to come back here for evaluation. States she has been eating and drinking okay. Denies any leg swelling. PAST MEDICAL HISTORY: As noted above MEDICATIONS: Reviewed home medication SOCIAL HISTORY: Lives at home with daughter PHYSICAL EXAM: GENERAL: alert and oriented in no acute distress on stretcher Head: normocephalic and atraumatic EYES: No injection, discharge or icterus. EOMI. NECK: Trachea midline. ENT: Mucous membranes pink and moist. LUNGS: Airway patent. No retractions. Breath sounds clear with good air entry bilaterally. HEART: Regular rate and rhythm. No chest wall tenderness ABDOMEN: Soft and non-tender, without guarding or rebound. SKIN: Acyanotic, warm, dry, without rashes EXTREMITIES: Without swelling, tenderness or deformity NEUROLOGICAL: No focal deficits. No aphasia. No facial droop or slurred speech. Ambulatory. EK bpm sinus bradycardia. No PVC. No acute ST segment elevation with a QTc of 409. Bit of baseline artifact. CONTINUOUS CARDIAC MONITORING: was ordered and showed a heart rate of 50s to 60s bpm in normal sinus rhythm to sinus bradycardia Patient's laboratory studies and imaging reviewed. Differential includes Vasovagal event, dehydration, infection, hypoglycemia, electrolyte abnormalities, cardiac sources, intracerebral event, pulmonary embolism, seizure, toxicologic, neurologic, GI abnormalities, bowel obstruction, cholecystitis, pancreatitis, hepatitis, diverticulitis, perforation, gastritis as well as other pathologies. IMPRESSION/MEDICAL DECISION MAKING: No significant focal deficits and no trauma reported. Does not appear altered and I doubt CVA or meningitis. EKG obtained as well as troponin. No obvious findings of ACS or heart injury. Reviewed prior records and hospitalization for her CKD and hyperkalemia 2 months ago. This appears fairly stable today without evidence of hepatitis or true pancreatitis. Does have notable hyponatremia 127 may be contributing to her symptoms. Will give her some lactated Ringer's gently and discussed with her these findings. Do not believe he needs CT imaging of the head. Benign abdomen at this time and I doubt obstruction or acute intra-abdominal pathology. Doubt infectious etiology. Urine sample is pending collection at this time but seems less likely to be UTI. Follows with nephrology. Given the hyponatremia will again gently hydrate recommend we observe her overnight for improvement especially with the near syncope/syncopal event. Patient agreeable. Hospitalist contacted. DIAGNOSIS: Acute hyponatremia, near syncope DISPOSITION: Hospitalist will evaluate Patient was agreeable with this plan. Past Med/Surg History Problem List (Updated 12/19/23 @ 23:54 by Johnnie Mccain M.D.) Syncope (Acute) Acute hyponatremia (Acute) Abnormal chest CT Pneumonia Lung mass new finding 11/2022 HTN (hypertension) Hyperkalemia CKD (chronic kidney disease), stage IV with nephrotic range proteinuria Acute hyperkalemia (Acute) Medical History Arthritis Gout Surgical History H/O: hysterectomy Family History Sister Eclampsia (toxemia of ) Mother Eclampsia (toxemia of ) Social History Smoking Status: Former smoker Second Hand Exposure: No; Do You Dip or Chew Tobacco: No; Hx Alcohol Use: No Hx Substance Use: No Preferred Language: Bengali Communication Ability: Effective Electroplating Technician Required: No Beliefs That Will Affect Care: Spiritual Spiritual Healthcare Practices: Yazidism Current Living Situation: Family Other Information That Helps Us Care for You: No Feels Safe at Home: Yes Assistive Devices: Cane Allergies Allergies Allergy/AdvReac Type Severity Reaction Status Date / Time No Known Allergies Allergy Unverified 11/02/22 21:03 Home Meds Home Medications Medication Instructions Recorded Confirmed allopurinol 100 mg tablet 100 mg PO QAM 11/02/22 12/19/23 amlodipine 5 mg tablet 5 mg PO AMHS 11/02/22 12/19/23 cholecalciferol (vitamin D3) 125 125 mcg PO QAM 11/02/22 12/19/23 mcg (5,000 unit) tablet (Vitamin D3) magnesium sulfate 100 mg capsule 100 mg PO QAM 11/02/22 12/19/23 multivitamin 1 tab PO QAM 11/02/22 12/19/23 rosuvastatin 10 mg tablet 10 mg PO QAM 11/02/22 12/19/23 lisinopril 10 mg tablet 10 mg PO QAM 12/19/23 12/19/23 Previous Rx's Medication Instructions Recorded sodium bicarbonate 650 mg tablet 650 mg PO BID 30 days #60 tabs 11/04/22 torsemide 10 mg tablet 5 mg (1/2 x 10 mg) PO QAM 30 days 11/04/22 #15 tabs Results & Data (ED) Vital Signs Vital Signs - 24 hr 12/19/23 13:31 12/19/23 15:41 Temperature 36.7 C Temperature Source Temporal Artery Scan Pulse Rate 59 L Pulse Rate [Left Finger] 63 Respiratory Rate 18 16 Respiratory Effort / Characteristics Non-Labored Spontaneous Non-Labored Spontaneous Respiratory Depth Normal Normal Respiratory Pattern Regular Regular Blood Pressure 135/55 L Blood Pressure [Left Arm] 148/63 H Blood Pressure Mean 81 Blood Pressure Mean [Left Arm] 91 Pulse Oximetry 98 100 Oxygen Delivery Method Room Air Room Air Sepsis Recent Fever Within 48 Hours No Sepsis New/Unexplained Change in Mental Status N/A Sepsis Action Taken by Nursing No Action Required Laboratory Data 12/19/23 14:14 12/19/23 Unknown Lab Results 12/19/23 Range/Units 14:14 WBC 8.91 (4.8-10.8) K/ul RBC 3.98 L (4.20-5.40) M/uL Hgb 11.2 L (12.0-16.0) g/dl Hct 32.6 L (37.0-47.0) % MCV 81.9 (80.0-100.0) fL MCH 28.1 (25.0-34.0) pg MCHC 34.4 (32.0-36.0) g/dL RDW Std Deviation 41.4 (36.4-46.3) fL RDW Coeff of Donal 14.0 (11.5-14.5) % Plt Count 257 (130-400) K/uL MPV 10.8 (9.4-12.4) fL Immature Gran % (Auto) 0.3 % Neut % (Auto) 75.8 % Lymph % (Auto) 15.5 % Graham % (Auto) 6.1 % Eos % (Auto) 2.1 % Baso % (Auto) 0.2 % Neut # (Auto) 6.75 H (1.40-6.50) K/uL Lymph # (Auto) 1.38 (1.20-3.40) K/uL Graham # (Auto) 0.54 (0.11-0.59) K/uL Eos # (Auto) 0.19 (0.00-0.50) K/uL Baso # (Auto) 0.02 (0.00-0.20) K/uL Immature Gran # (Auto) 0.03 (0.01-0.20) K/uL PT 10.0 (9.0-12.0) Seconds INR 0.9 (0.9-1.1) APTT 24 (21-31) Seconds PTT Ratio 0.9 Sodium TNP Potassium TNP Chloride 97 L (98-107) mmol/L Carbon Dioxide 21 (21-32) mmol/L Anion Gap TNP BUN 45 H (6-23) mg/dl Creatinine 2.60 H (0.6-1.2) mg/dl Est Cr Clr Drug Dosing Not Reportable Est GFR ( Amer) 19.3 ml/min Est GFR (Non-Af Amer) 16.6 ml/min BUN/Creatinine Ratio 17.3 (10-20) Glucose 162 H (70-99(Fasting)) mg/dl Osmolality 286 (280-300) mOsm/kg Calcium 8.9 (8.6-10.3) mg/dl Magnesium TNP Total Bilirubin 0.4 (0.2-1.0) mg/dl AST TNP ALT 12 (7-52) U/L Alkaline Phosphatase 72 (34-104) U/L Troponin I High Sens 5.0 (0-14) pg/ml Total Protein 7.8 (6.0-8.3) gm/dl Albumin 4.3 (3.4-5.0) gm/dl Globulin 3.5 (2.5-4.0) gm/dl Albumin/Globulin Ratio 1.2 (0.9-2) Lipase 93 H (11-82) U/L Administered Medications Amlodipine Besylate (Amlodipine Besylate 5 Mg Tab) 5 mg PO AMHS ANA Stop: 01/18/24 20:59 Last Admin: 12/19/23 21:55 Dose: 5 mg Documented By: EMILY Sodium Chloride (Nss) 1,000 mls @ 60 mls/hr IV .[id number] ANA Stop: 12/20/23 12:09 Last Admin: 12/19/23 21:01 Dose: 60 mls/hr Documented By: EMILY Sodium Bicarbonate (Sodium Bicarbonate 650 Mg Tab) 650 mg PO BID ANA Stop: 01/18/24 20:59 Last Admin: 12/19/23 21:56 Dose: 650 mg Documented By: EMILY Discontinued Medications Lactated Ringer's (Lr) 1,000 mls @ 80 mls/hr IV .[id number] ANA Stop: 12/20/23 18:29 Last Infusion: 12/19/23 18:40 Dose: Infused Documented By: Admin: 12/19/23 17:40 Dose: 80 mls/hr Documented By: SILVIO Discharge Plan Visit Data Chief Complaint: Syncope (Near Syncope) Stated Complaint: NEAR SYNCOPE, ILLNESS ED Provider: Johnnie Mccain Discharge Problem: Acute hyponatremia, Syncope Patient Disposition: Being Evaluated by Hospitalist Discharge Instructions Interventions: ED Discharge Assessment Last Done: 12/19/23 21:20
[2023-12-19] MEDS: LACTATED RINGER'S 1,000 ML IV SCH (17:40)
[2023-12-19 17:47] LABS: Thyroid Stimulating Hormone 2.872 uIu/ml (0.300-4.500)
[2023-12-19] MEDS ORDERED: POLYETHYLENE (MIRALAX) 17 GM PACK PO PRN (18:07)
[2023-12-19] MEDS ORDERED: ACETAMINOPHEN 325 MG TAB PO PRN (18:07)
[2023-12-19] MEDS ORDERED: MAGNESIUM HYDROXIDE SUSP 30 ML UDC PO PRN (18:07)
[2023-12-19] MEDS ORDERED: ALUMINUM/MAGNESIUM SUSP 30 ML UDC PO PRN (18:07)
[2023-12-19] MEDS ORDERED: ONDANSETRON INJ 2 MG/ML 2 ML VIAL IV PRN (18:07)
--- NOTE | 2023-12-19 18:29 | History & Physical Report ---
Date of Service December 19, 2023 Assessment & Plan (1) Acute hyponatremia: (2) Abnormal chest CT: (3) HTN (hypertension): (4) CKD (chronic kidney disease), stage IV: Plan Patient is an 83 year old that was at the [facility] today and after she had lunch she started to have abdominal pain and tenderness. She also reports an episode of diarrhea today. Her friend reports that she had blank staring while at the [facility]. Pt reports a good appetite. Denies tobacco, alcohol, or recreational drug use. In the ED no leukocytosis, sodium level 127, BUN 45, creatinine 2.60; baseline 2.1-2.3, lipase 93, magnesium 2.3, LFT and troponin negative. Chest CT performed 11/23 revealed 3.9 X3.6X 3.2 cm round mass lesion left lower lobe. Per gentle review of outpatient records appears that patient was declining further testing. Patient will be admitted for further evaluation and management of hyponatremia including IV fluids, repeat chest CT, urine osmolality, urine sodium, BMP recheck every 6 hours. Acute hyponatremia: Acute Serum sodium 127 Consider in the setting of malignancy vs protein calorie malnourishment. Patient does not drink alcohol and is not on any thiazide medication, serum potassium 4.9. Started on LR at 80 mL/h x 2 bags; reassess Check urine Osmo, urine sodium, Patient with history of chest CT 11/23 3.9 x 3.6 x 3.2 cm round mass lesion left lower lobe. Eating and drinking ok Lung Nodules: Lung nodule chest CT 11/23 3.9 X3.6X 3.2 cm groundglass lesion LLL Repeat chest CT without contrast to follow up on sizing to determine if malignancy could be possible cause of hyponatremia HTN: Chronic Takes Amlodipine and Lisinopril; continue for now Lisinopril not a new medication for her CKD IV: Chronic Follows with Dr. Fan Serum creatinine 2.60; baseline 2.1-2.3 Disposition: PCP: Chata Eli Code Status: DNR/DNI VTE Prophylaxis: Teds + SCDs for now I spent a total of 87 minutes coordinating, documenting, and providing care for this patient excluding time spent in the performance of separately billed services. All of the aforementioned completed while collaborating with the assigned attending physician for a full treatment plan. Please see their addendum for further details. History of Present Illness Chief Complaint: hyponatremia Primary Care Provider: Chata Eli PA-C Patient is an 83 year old that was at the [facility] today and after she had lunch she started to have abdominal pain and tenderness. She also reports an episode of diarrhea today. Her friend reports that she had blank staring while at the [facility]. Pt reports a good appetite. Denies tobacco, alcohol, or recreational drug use. In the ED no leukocytosis, sodium level 127, BUN 45, creatinine 2.60; baseline 2.1-2.3, lipase 93, magnesium 2.3, LFT and troponin negative. Chest CT performed 11/23 revealed 3.9 X3.6X 3.2 cm round mass lesion left lower lobe. Per gentle review of outpatient records appears that patient was declin ing further testing. Pt is sitting in her hospital bed in no apparent distress. She is able to answer all questions appropriately. Patient denies dizziness, SOB, chest pain, palpitations, fever, chills, visual or auditory changes, N/V/D, recent falls or trauma. Patient will be admitted for further evaluation and management of hyponatremia including IV fluids, repeat chest CT, urine osmolality, urine sodium, BMP recheck every 6 hours. Allergies Allergy/AdvReac Type Severity Reaction Status Date / Time No Known Allergies Allergy Unverified 11/02/22 21:03 Home Medications Medication Instructions Recorded Confirmed Type allopurinol 100 mg tablet 100 mg PO QAM 11/02/22 12/19/23 History amlodipine 5 mg tablet 5 mg PO AMHS 11/02/22 12/19/23 History cholecalciferol (vitamin D3) 125 125 mcg PO QAM 11/02/22 12/19/23 History mcg (5,000 unit) tablet (Vitamin D3) magnesium sulfate 100 mg capsule 100 mg PO QAM 11/02/22 12/19/23 History multivitamin 1 tab PO QAM 11/02/22 12/19/23 History rosuvastatin 10 mg tablet 10 mg PO QAM 11/02/22 12/19/23 History sodium bicarbonate 650 mg tablet 650 mg PO BID 30 days #60 tabs 11/04/22 12/19/23 Rx torsemide 10 mg tablet 5 mg (1/2 x 10 mg) PO QAM 30 days 11/04/22 12/19/23 Rx #15 tabs lisinopril 10 mg tablet 10 mg PO QAM 12/19/23 12/19/23 History Past Med/Surg History Problem List (Updated 12/19/23 @ 18:45 by PAGE Martinez) Acute hyponatremia Abnormal chest CT Pneumonia Lung mass new finding 11/2022 HTN (hypertension) Hyperkalemia CKD (chronic kidney disease), stage IV with nephrotic range proteinuria Acute hyperkalemia (Acute) Medical History Arthritis Gout Surgical History H/O: hysterectomy Family History Sister Eclampsia (toxemia of ) Mother Eclampsia (toxemia of ) Social History Smoking Status: Never smoker Second Hand Exposure: No; Do You Dip or Chew Tobacco: No; Hx Alcohol Use: No Hx Substance Use: No Preferred Language: Spanish Communication Ability: Effective Billing Collections Specialist Required: No Beliefs That Will Affect Care: None Current Living Situation: Family Feels Safe at Home: Yes Assistive Devices: Cane Review of Systems Review of Systems: Neuro: (-) Falls, trauma, slurred speech HEENT: (-) NICOLE, dizziness, dysphagia, visual or auditory changes CV: (-) CP, palpitations, swelling Resp: (-) SOB GI: (-) appetite changes, N/V/D, bowel changes : (-) urinary changes Skin: (-) rashes Psych: (-) anxiety, depression Physical Exam Physical Exam: See Dr. Stover addendum for physical examination. Results & Data Results & Data Vital Signs (Past 12 Hours) Vital Signs Temp Pulse Pulse Resp BP BP Pulse Ox 12/19/23 15:41 63 16 148/63 H 100 12/19/23 13:31 36.7 C 59 L 18 135/55 L 98 O2 Del Method 12/19/23 15:41 Room Air 12/19/23 13:31 Room Air Laboratory Results Short CBC 12/19/23 Range/Units 14:14 WBC 8.91 (4.8-10.8) K/ul Hgb 11.2 L (12.0-16.0) g/dl Hct 32.6 L (37.0-47.0) % Plt Count 257 (130-400) K/uL BMP 12/19/23 12/19/23 14:14 Unknown Sodium TNP 127 L Potassium TNP 4.9 Chloride 97 L Carbon Dioxide 21 BUN 45 H Creatinine 2.60 H Glucose 162 H Calcium 8.9 Liver Function 12/19/23 12/19/23 Range/Units 14:14 Unknown Total Bilirubin 0.4 (0.2-1.0) mg/dl AST TNP 24 ALT 12 (7-52) U/L Alkaline Phosphatase 72 (34-104) U/L Albumin 4.3 (3.4-5.0) gm/dl Code Status & VTE Plan Code Status DNR/DNI in the event of cardiac respiratory arrest VTE Prophylaxis Plan VTE Prophylaxis will be ordered: Yes Supervising Physician Co-Signing Physician Notes 83-year-old lady with PMH of lung nodule, HTN, CKD stage IV presented with complaint of a stomach ache followed by watery stool after lunch today, noted to have hyponatremia in the hospital. Will send urine sodium, urine osmolality, se rum osmolality. Low-sodium diet/increase protein content in the diet. CT scan of the chest for lung nodule. Will put her on IV fluid, will hold her home diuresis until patient on IV fluid. Will get orthostatic vital. Monitor replete electrolytes. On examination: GENERAL: Alert and oriented x3. NAD, on RA. HEENT: No pallor, no icterus. Pupils equal, round and reactive to light. Oral mucosa moist. NECK: No JVD, no neck masses. HEART: S1 and S2 heard. Regular rate and rhythm. No murmur, no gallop. RESPIRATORY SYSTEM: Normal AP diameter. No accessory muscle use. No wheezing, no crackles. ABDOMEN: Soft, bowel sounds present, nontender, no distention. CENTRAL NERVOUS SYSTEM: No facial droop. Speech is clear. Obeys simple commands. Moves extremities. EXTREMITIES: No edema, no erythema seen. I have seen and examined the patient and have discussed the case with the provider above. I agree with the assessment and plan as stated.
--- OUTSIDE RECORDS SUMMARY | 2023-12-19 20:01 | External Medical Summary | Summary of Care ---
Author Name Unknown Organization [facility] Address [address] [facility] [place] [address] Phone [phone] Care Team Providers Care Casting Finisher Name Role Phone Chata Eli PA-C Primary Care Provide r Reason for Visit * Reason Comments Flank Pain Encounter Details Date Type Department Care Team (Latest Contact Info) Description 09/20/2023 11:30 AM EDT Convenient Care Visit [facility] [address] [place] [address] Anastasiya Pineda PA-C [address] [facility] [address] Right flank pain* Allergies No known active allergiesdocumented as of this encounter (statuses as of 09/20/2023) Medications Medication Sig Dispensed Refills Start Date End Date Status amLODIPine Besylate 5 MG Oral Tablet (Norvasc) Take 1 tablet by mouth twice daily 180 Tablet 3 12/15/2022 Active Lisinopril 10 MG Oral Tablet (Prinivil)Indication s:CKD (chronic kidney disease) stage 4, GFR 15-29 ml/min (HCC) Take 1 Tablet by mouth in the morning. 90 Tablet 5 12/24/2022 Active Allopurinol 100 MG Oral Tablet (Zyloprim)Indication s:Kidney disease, chronic, stage IV (GFR 15-29 ml/min) (HCC),Idiopathic chronic gout of multiple sites without tophus Take 2 Tablets by mouth in the morning. 180 Tablet 11 01/24/2023 Active Vitamin D3 25 MCG (1000 UT) Oral Capsule Take 1 Capsule by mouth daily at noon. 90 Capsule 3 02/02/2023 Active Torsemide 5 MG Oral Tablet (Demadex)Indications :HTN, goal below 140/90 Take 1 Tablet by mouth in the morning. 90 Tablet 3 04/26/2023 Active Sodium Bicarbonate 650 MG Oral TabletIndications:CK D (chronic kidney disease) stage 4, GFR 15-29 ml/min ([facility]) Take 1 Tablet by mouth in the morning and 1 Tablet before bedtime. 360 Tablet 3 04/26/2023 Active Magnesium Citrate 83 MG Oral Tablet Chewable Take by mouth daily. 0 07/15/2023 Active Rosuvastatin Calcium 10 MG Oral Tablet (Crestor)Indications :Dyslipidemia Take 1 Tablet by mouth in the morning. 90 Tablet 3 08/12/2023 Active Polyethylene Glycol 3350 17 GM/SCOOP Oral Powder (MiraLax)Indications :Constipation, unspecified constipation type Take 17 g by mouth in the morning. Dissolve one heaping tablespoon in 8 ounces of water or juice.. 850 g 11 08/12/2023 Active Diclofenac Sodium 1 % External Gel (Voltaren)Indication s:Right flank pain Apply topically to affected area 2 times a day. Apply to right flank pain 50 g 0 09/20/2023 Active documented as of this encounter (statuses as of 09/20/2023) Active Problems Problem Noted Date Diagnosed Date Lung mass 02/02/2023 Protein-calorie malnutrition 12/01/2022 Kidney disease, chronic, stage IV (GFR 15-29 ml/ min) 11/08/2022 Overview: Per CKD protocol Idiopathic chronic gout of multiple sites withou t tophus 08/04/2022 Carpal tunnel syndrome of left wrist 08/04/2022 HTN, goal below 140/90 12/13/2018 Dyslipidemia 12/13/2018 documented as of this encounter (statuses as of 09/20/2023) Resolved Problems Problem Noted Date Diagnosed Date Resolved Date Abnormal chest CT 02/02/2023 02/02/2023 documented as of this encounter (statuses as of 09/20/2023) Immunizations Name Administration Dates Next Due COVID-19 mRNA, LNP-s, No Pre serve, 2-Dose Series (Moderna) 07/10/2021,01/26/2021,07/20/2020 Pneumococcal Conjugate Vacci ne, 20-valent ([id number]) 08/04/2022 Seasonal Influenza, Quadriva lent Hd (Fluzone Hd) 04/26/2023,08/04/2022 Zoster Vaccine Recombinant (Shingrix) 02/02/2023 ,03/20/2019 documented as of this encounter Social History Tobacco Use Types Packs/Day Years Used Date Smoking Tobacco: Never Smokeless Tobacco: Never Tobacco Cessation:Counseling Given: No Alcohol Use Standard Drinks/Week Comments No 0 (1 standard drink = 0.6 oz pur e alcohol) PHQ-2 Answer Date Recorded PHQ Adult Total Score 0 02/02/2023 Hunger Vital Sign Answer Date Recorded Within the past 12 months, y ou worried that your food would run out before you got the money to buy more. Never true 09/10/19 23 Within the past 12 months, t he food you bought just didn't last and you didn't have money to get more. Never true 09/09/2022 Sex and Gender Information Value Date Recorded Sex Assigned at Not on file Gender Identity Not on file Sexual Orientation Not on file Job Start Date Occupation Industry Not on file Not on file Not on file documented as of this encounter Last Filed Vital Signs Vital Sign Reading Time Taken Comments Blood Pressure 132/56 09/20/2023 11:55 AM EDT Pulse 68 09/20/2023 11:55 AM EDT Temperature 36.2 C (97.1 F) 09/20/2023 11:55 AM E DT Respiratory Rate 16 09/20/2023 11:55 AM EDT Oxygen Saturation 98% 09/20/2023 11:55 AM EDT Inhaled Oxygen Concentration - - Weight 57.6 kg (127 lb) 09/20/2023 11:55 AM EDT Height 147.3 cm (4' 10") 09/20/2023 11:55 AM EDT Body Mass Index 26.54 09/20/2023 11:55 AM EDT documented in this encounter Patient Instructions * Patient Instructions* Anastasiya Pineda PA-C - 09/20/2023 12:26 PM EDT Go to [facility] for xray and blood work documented in this encounter Progress Notes * Anastasiya Pienda PA-C - 09/20/2023 12:06 PM EDT Subjective: Nursing Notes: Francisca Freedman, PBT 09/20/23 1202 Signed Leanna Garcia is a 83 year old female who presents to walk-in clinic today complaining of Chief Complaint Patient presents with Flank Pain Main Symptoms:Has R sided flank pain Cause: Unknown Pain is 8/10. How long: Onset 1 week Tried: Tylenol, last dose this AM, temporary relief Pt accompanied by: Self/daughter Sx are right flank pain, x 7 d that has been getting worse, overnight does not seem to hurt, acetaminophen is helping some for a few hours No pain w walking, some with twisting, sometimes when sitting down or getting up will hurt Eats a lot of bread, rice,frozen pancakes but not a lot of veggies no sick contacts at home. Sig med hx/risk factors: CKD GFR 15-29, lazt BMP was 07/15/23 gfr was 17, protein calorie malnutrition, hx gout had flu shot this year. Review of Systems Constitutional: Negative. Respiratory: Negative. Cardiovascular: Negative. Gastrointestinal: Positive for constipation (intermittent but this is not new for pt). Negative forabdominal pain, nausea and vomiting. Musculoskeletal: Positive for back pain (right flank pain). PMH: Patient Active Problem List Diagnosis Code HTN, goal below 140/90 I10 Dyslipidemia E78.5 Idiopathic chronic gout of multiple sites without tophus [id number].[id number] Carpal tunnel syndrome of left wrist G56.02 Kidney disease, chronic, stage IV (GFR 15-29 ml/min) (HCC) N18.4 Protein-calorie malnutrition (HCC) E46 Lung mass R91.8 Current Outpatient Medications Medication Sig Dispense Refill amLODIPine Besylate 5 MG Oral Tablet (Norvasc) Take 1 tablet by mouth twice daily 180 Tablet 3 Lisinopril 10 MG Oral Tablet (Prinivil) Take 1 Tablet by mouth in the morning. 90 Tablet 5 Allopurinol 100 MG Oral Tablet (Zyloprim) Take 2 Tablets by mouth in the morning. 180 Tablet 11 Vitamin D3 25 MCG (1000 UT) Oral Capsule Take 1 Capsule by mouth daily at noon. 90 Capsule 3 Torsemide 5 MG Oral Tablet (Demadex) Take 1 Tablet by mouth in the morning. 90 Tablet 3 Sodium Bicarbonate 650 MG Oral Tablet Take 1 Tablet by mouth in the morning and 1 Tablet before bedtime. 360 Tablet 3 Magnesium Citrate 83 MG Oral Tablet Chewable Take by mouth daily. Rosuvastatin Calcium 10 MG Oral Tablet (Crestor) Take 1 Tablet by mouth in the morning. 90 Tablet 3 Polyethylene Glycol 3350 17 GM/SCOOP Oral Powder (MiraLax) Take 17 g by mouth in the morning. Dissolve one heaping tablespoon in 8 ounces of water or juice.. 850 g 11 Diclofenac Sodium 1 % External Gel (Voltaren) Apply topically to affected area 2 times a day. Applyto right flank pain 50 g 0 No current facility-administered medications for this visit. No past medical history on file. Past Surgical History: Procedure Laterality Date TOTAL HYSTERECTOMY 1984 Review of patient's allergies indicates: No Known Allergies Objective: BP 132/56 | Pulse 68 | Temp 36.2 C (97.1 F) (Tympanic) | Resp 16 | Ht 1.473 m (4' 10") | Wt 57.6 kg (127 lb) | SpO2 98% | BMI 26.54 kg/m | BSA 1.54 m Physical Exam Constitutional: General: She is not in acute distress. Appearance: Normal appearance. She is not ill-appearing, toxic-appearing or diaphoretic. Comments: Pt was smiling during the encounter most of the time and was in no obvious pain Cardiovascular: Rate and Rhythm: Normal rate and regular rhythm. Heart sounds: Normal heart sounds. Pulmonary: Effort: Pulmonary effort is normal. Breath sounds: Normal breath sounds. Abdominal: General: There is no distension. Tenderness: There is no abdominal tenderness. There is no right CVA tenderness, left CVA tendernessor guarding. Comments: Minimal pain with deep palpation over the lower right posterolateral ribs Musculoskeletal: General: No swelling or tenderness. Right lower leg: No edema. Left lower leg: No edema. Neurological: Mental Status: She is alert and oriented to person, place, and time. Psychiatric: Mood and Affect: Mood normal. Behavior: Behavior normal. ASSESSMENT/PLAN: Right flank pain (Primary) - URINALYSIS, POINT OF CARE (ENTER/EDIT) - XR ABDOMEN 1 VIEW; Future; Expected date: 09/20/2023 - BASIC METABOLIC PANEL; Future; Expected date: 09/20/2023 - Diclofenac Sodium 1 % External Gel (Voltaren); Apply topically to affected area 2 times a day. Apply to right flank pain - CULTURE, URINE, QUANTITATIVE FINDINGS The bowel gas pattern is nonobstructive. No dilated loops of bowel are seen. 1.4 cm calcific density that projects over the right upper abdomen is of uncertain etiology, possibly a gallstone. No definite urinary tract calculus. Visualized osseous structures are unremarkable. IMPRESSION IMPRESSION Large calcification in the right upper abdomen, possibly a gallstone. Recommend correlation with ultrasound. BMP stable compared to recent other BMP's. Discussed xray findings w daughter over phone, note of \\findings sent to Primary Care Provider and case management social worker US ordered Return instruction reviewed with pt in detail. Reasons to report to the ED were also reviewed. Voiced understanding Advised to follow up if no improvement in 3-5days. Anastasiya Pineda PA-C documented in this encounter Nursing Notes * Francisca Freedman PBT - 09/20/2023 12:01 PM EDT Leanna Garcia is a 83 year old female who presents to walk-in clinic today complaining of Chief Complaint Patient presents with Flank Pain Main Symptoms:Has R sided flank pain Cause: Unknown Pain is 8/10. How long: Onset 1 week Tried: Tylenol, last dose this AM, temporary relief Pt accompanied by: Self/daughter documented in this encounter Plan of Treatment Upcoming Encounters Date Type Department Care Team (Late st Contact Info) Description 02/10/2024 1:00 PM EDT Office Visit Family Practice State Dipesh Charles [address] [facility] [place] [address] Chata Eli PA-C [address] [facility] [place] [address] Pending Results Name Type Priority Associated Diagnoses Date /Time CULTURE, URINE, QUANTITATIVE Lab Routine Right flank pain 09/20/2023 1:02 PM EDT Health Maintenance Due Date Last Done Comments DXA Scan 1940 Hgb 1960 DTaP,Tdap,and Td Vaccines (1 - Tdap) 1961 COVID-19 Vaccine (4 - season) 2023 07/10/2021, 01/26/2021, 07/20/2020 Phosphate 08/09/2023 08/09/2022 PTH 08/26/2023 08/26/2022 Albumin/Creatinine Ratio 01/21/2024 01/20/2023, 0212/2022 Depression Screening 02/03/2024 02/02/2023 GFR 03/22/2024 09/20/2023, 07/04, 05/02/2023, Additional history exists Nephrology Referral 07/15/2024 07/15/2023 Pneumococcal Vaccine: 65+ Years Completed 08/04/2022 Zoster Vaccines Completed 02/02/2023, 03/20/2019 Influenza Vaccine (FLU shot) Completed 04/26/2023, 08/04/2022 GARDASIL-HPV IMMUNIZATION SERIES Aged Out No longer eligible based on patient's age to complete this topic Hepatitis B Aged Out No longer eligi ble based on patient's age to complete this topic MENINGOCOCCAL (MENACTRA/MENVEO) Aged Out No longer eligible based on patient's age to complete this topic documented as of this encounter Medical Devices Not on filedocumented as of this encounter Procedures Procedure Name Priority Date/Time Associated Diagnosis Comments URINALYSIS, POINT OF CARE (ENTER/EDIT) Routine 09/20/2023 11:58 AM EDT Right flank pain documented in this encounter Results * (ABNORMAL) BASIC METABOLIC PANEL (09/20/2023 1:07 PM EDT) BUN 38(H) 6 - 20 mg/dL 09/20/2023 3:00 PM EDT [facility] Creatinine 2.6(H) 0.5 - 1.0 mg/dL 09/20/2023 3:00 PM EDT [facility] Estimated Glomerular Filtration Rate 18(L) >=60 mL/min 09/20/2023 3:00 PM EDT [facility] Comment:eGFR is calculated b ased on the CKD-EPI 2020 equation Sodium 133(L) 135 - 146 mmol/L 09/20/2023 3:00 PM EDT [facility] Potassium 5.0 3.5 - 5.1 mmol/L 09/20/2023 3:00 PM EDT [facility] Chloride 96(L) 98 - 107 mmol/L 09/20/2023 3:00 PM EDT [facility] CO2 20(L) 22 - 32 mmol/L 09/20/2023 3:00 PM EDT [facility] Anion Gap 17(H) 7 - 15 mmol/L 09/20/2023 3:00 PM EDT [facility] Glucose 111 70 - 120 mg/dL 09/20/2023 3:00 PM EDT [facility] Calcium 9.4 8.4 - 10.2 mg/dL 09/20/2023 3:00 PM EDT [facility] Blood Venous blood specimen / Unknown Venipuncture / Unknown 09/20/2023 1:07 PM EDT 09/20/2023 1:07 PM EDT Anastasiya Pineda PA-C LAB BLOOD [facility] Organization Address City/State/ZIP Co de Phone Number [phone] [facility] [place] [address] * XR ABDOMEN 1 VIEW (09/20/2023 12:58 PM EDT) Anatomical Region Laterality Modality Abdomen, Pelvis Computed Radiogr aphy 09/20/2023 1:54 PM EDT Impressions 09/20/2023 1:52 PM EDT IMPRESSION Large calcification in the right upper abdomen, possibly a gallstone. Recommend correlation with ultrasound. Narrative 09/20/2023 1:52 PM EDT EXAM XR ABDOMEN 1 VIEW - 09/20/2023 12:58 pm HISTORY right flank pain TECHNIQUE Single AP supine view of the abdomen was obtained. COMPARISON None. FINDINGS The bowel gas pattern is nonobstructive. No dilated loops of bowel are seen. 1.4 cm calcific density that projects over the right upper abdomen is of uncertain etiology, possibly a gallstone. No definite urinary tract calculus. Visualized osseous structures are unremarkable. Procedure Note Jeovany Becerra MD - 09/20/2023 EXAM XR ABDOMEN 1 VIEW - 09/20/2023 12:58 pm HISTORY right flank pain TECHNIQUE Single AP supine view of the abdomen was obtained. COMPARISON None. FINDINGS The bowel gas pattern is nonobstructive. No dilated loops of bowel areseen. 1.4 cm calcific density that projects over the right upper abdomen is ofuncertain etiology, possibly a gallstone. No definite urinary tractcalculus. Visualized osseous structures are unremarkable. IMPRESSION IMPRESSION Large calcification in the right upper abdomen, possibly a gallstone.Recommend correlation with ultrasound. Anastasiya Pineda PA-C RADIOLOGY (RAD GENERAL) * (ABNORMAL) URINALYSIS, POINT OF CARE (ENTER/EDIT) (09/20/2023 11:58 AM EDT) Color, Urine Yellow Yellow or Light Yellow Clarity, Urine Clear Clear Glucose, Urine Negative Negative mg/dL Bilirubin, Urine Negative Negative Ketone, Urine Negative Negative mg/dL Specific R[place], Urine 1.025 1.003 - 1.030 Blood, Urine Negative Negative pH, Urine 5.5 5.0 - 7.5 units Protein, Urine >=300 Negative mg/dL Urobilinogen, Urine 0.2 0.2 - 1.0 mg/dL Nitrite, Urine Negative Negative Esterase, Urine Negative Negative Urine 09/20/2023 11:5 8 AM EDT Anastasiya Pineda PA-C LAB POINT OF C ARE TEST ENTER/EDIT ORDERABLES documented in this encounter Visit Diagnoses Diagnosis Right flank pain- Primary Abdominal pain, unspecified site Right flank pain Abdominal pain, unspecified site documented in this encounter Advance Directives Documents on File Type Date Recorded Patient Mergers And Acquisitions Banker Expl anation Advance Directives and Living Will 09/15/2023 signed on 08/12/2023 ADVANCE DIRECTIVE / LIVING WILL Power of Blast Furnace Keeper 09/15/2023 signed on 08/12/2023 POWER OF INSPECTOR FINAL ASSEMBLY ELECTRICAL Care Teams Casting Finisher Relationship Specialty Start Date End Date Chata Eli PA-C [address] [place] [address] PCP - General Physician Commercial Pilot 08/04/22 documented as of this encounter
--- OUTSIDE RECORDS SUMMARY | 2023-12-19 20:01 | External Medical Summary | Summary of Care ---
Author Name Unknown Organization [facility] Address [address] [place] [place] [place] [address] Phone [phone] Care Team Providers Care Sr Account Executive Name Role Phone Chata Eli PA-C Primary Care Provide r Reason for Visit * Reason Onset Date Comments Test Results Imaging Study 09/24/2023 Encounter Details Date Type Department Care Team ([facility] st Contact Info) Description [facility] [address] [place] [address] Anastasiya Pineda PA-C [address] [place], [place] [id number] Test Results Imaging Study Allergies No known active allergiesdocumented as of this encounter (statuses as of 09/24/2023) Medications Medication Sig Dispensed Refills Start Date [...] kidney disease) stage 4, GFR 15-29 ml/min ([facility]) Take 1 Tablet by mouth in the [...] as of this encounter (statuses as of 09/24/2023) Active Problems Problem Noted Date Diagnosed Date Lung mass 02/02/2023 Protein-calorie malnutrition 12/01/2022 Kidney disease, chronic, stage IV (GFR 15-29 ml/ min) 11/08/2022 Overview: Per CKD protocol Idiopathic chronic gout of multiple sites withou t tophus 08/04/2022 Carpal tunnel syndrome of left wrist 08/04/2022 HTN, goal below 140/90 12/13/2018 Dyslipidemia 12/13/2018 documented as of this encounter (statuses as of 09/24/2023) Resolved Problems Problem Noted Date Diagnosed Date Resolved Date Abnormal chest CT 02/02/2023 02/02/2023 documented as of this encounter (statuses as of 09/24/2023) Immunizations Name Administration Dates Next Due COVID-19 mRNA, LNP-s, No Pre serve, 2-Dose Series (Moderna) 07/10/2021,01/26/2021,07/20/2020 Pneumococcal Conjugate Vacci ne, 20-valent ([id number]) 08/04/2022 Seasonal Influenza, Quadriva lent Hd (Fluzone Hd) 04/26/2023,08/04/2022 Zoster Vaccine Recombinant (Shingrix) 02/02/2023 ,03/20/2019 documented as of this encounter Social History Tobacco Use Types Packs/Day Years Used Date Smoking Tobacco: Never Smokeless Tobacco: Never Alcohol Use Standard Drinks/Week Comments No 0 (1 standard drink = 0.6 oz pur e alcohol) PHQ-2 Answer Date Recorded PHQ Adult Total Score 0 02/02/2023 Hunger Vital Sign Answer Date Recorded Within the past 12 months, y ou worried that your food would run out before you got the money to buy more. Never true 09/10/19 Within the past 12 months, t he [...] on file documented as of this encounter Miscellaneous Notes * Telephone Encounter - Anastasiya Pineda PA-C - 09/24/2023 8:00 AM EDT Patient spelled last name and verbalized birthdate to verify identity. Called daughter as mother tends not to take the calls. Discussed results Stressed need to f/u w Primary Care Provider. Note sent to PCP documented in this encounter Plan of Treatment Upcoming Encounters Date Type Department Care Team (Late st Contact Info) Description 02/10/2024 1:00 PM EDT Office Visit Family Practice State Dipesh [place] [address] [place] [phone] Chata Eli PA-C [address] [place] [address] [address] Health Maintenance Due Date Last Done Comments DXA Scan 1940 Hgb 1960 DTaP,Tdap,and Td Vaccines (1 - Tdap) 1961 COVID-19 Vaccine (4 - 2022- season) 2023 07/10/2021, 01/26/2021, 07/20/2020 Phosphate 08/09/2023 08/09/2022 PTH 08/26/2023 08/26/2022 Albumin/Creatinine Ratio 01/21/2024 01/20/2023, 02/0 12/2022 Depression Screening 02/03/2024 02/02/2023 GFR 03/22/2024 09/20/2023, [...] Not on filedocumented as of this encounter Advance Directives Documents on File Type Date Recorded Patient Detective Investigator Expl anation Advance Directives and Living Will 09/15/2023 signed on 08/12/2023 ADVANCE DIRECTIVE / LIVING WILL Power of Wastewater Engineer 09/15/2023 signed on 08/12/2023 POWER OF INFORMATION OFFICER Care Teams Sr Account Executive Relationship Specialty Start Date End Date Chata Eli PA-C [address] [place], [place] [address] PCP - General Physician Print Inspector 08/04/22 documented as of this encounter
--- OUTSIDE RECORDS SUMMARY | 2023-12-19 20:01 | External Medical Summary | Summary of Care ---
Author Name Unknown Organization [facility] Address [address] [facility] [place] [address] Phone [phone] Care Team Providers Care Leather Toggler Name Role Phone Chata Eli PA-C Primary Care Provide r Reason for Referral * Medication Prior Authorization - Pending Review Specialty Diagnoses / Procedures Referred By Contgenesis t Referred To Contact Diagnoses Dyslipidemia Chata Eli PA-C [address] [place] [id number] Referral ID Status Reason Start Date Expiration Date V isits Requested Visits Authorized [id number] Pending Review 999 999 Reason for Visit * Reason Comments Follow Up Encounter Details Date Type Department Care Team (Late st Contact Info) Description 08/12/2023 11:20 AM EST [facility] [employer] [address] [place] [id number] Chata Eli PA-C [address] [facility] [place] [address] Dyslipidemia*; Idiopathic chronic gout of multiple sites without tophus; HTN, goal below 140/90; Kidney disease, chronic, stage IV (GFR 15-29 ml/min) ([facility]); Lung mass; Protein-calorie malnutrition, unspecified severity ([facility]); Constipation, unspecified constipation type; Heart murmur; Body mass index 26.0-26.9, adult Allergies No known active allergiesdocumented as of this encounter (statuses as of 08/12/2023) Medications Medication Sig Dispensed Refills Start Date End Date Status amLODIPine Besylate 5 MG Oral Tablet (Norvasc) Take 1 tablet by mouth twice daily 180 Tablet 3 3 Active Lisinopril 10 MG Oral Tablet (Prinivil)Indicat ions:CKD (chronic kidney disease) stage 4, GFR 15-29 ml/min ([facility]) Take 1 Tablet by mouth in the morning. 90 Tablet 5 3 Active Allopurinol 100 MG Oral Tablet (Zyloprim)Indicat ions:Kidney disease, chronic, stage IV (GFR 15-29 ml/min) ([facility]),Idiopathic chronic gout of multiple sites without tophus Take 2 Tablets by mouth in the morning. 180 Tablet 11 3 Active Vitamin D3 25 MCG (1000 UT) Oral Capsule Take 1 Capsule by mouth daily at noon. 90 Capsule 3 3 Active Torsemide 5 MG Oral Tablet (Demadex)Indicati ons:HTN, goal below 140/90 Take 1 Tablet by mouth in the morning. 90 Tablet 3 3 Active Sodium Bicarbonate 650 MG Oral TabletIndications :CKD (chronic kidney disease) stage 4, GFR 15-29 ml/min ([facility]) Take 1 Tablet by mouth in the morning and 1 Tablet before bedtime. 360 Tablet 3 3 Active Magnesium Citrate 83 MG Oral Tablet Chewable Take by mouth daily. 0 4 Active Rosuvastatin Calcium 10 MG Oral Tablet (Crestor)Indicati ons:Dyslipidemia Take 1 Tablet by mouth in the morning. 90 Tablet 3 4 Active Polyethylene Glycol 3350 17 GM/SCOOP Oral Powder (MiraLax)Indicati ons:Constipation, unspecified constipation type Take 17 g by mouth in the morning. Dissolve one heaping tablespoon in 8 ounces of water or juice.. 850 g 11 4 Active Zoster Vac Recomb Adjuvanted 50 MCG/0.5ML Intramuscular Suspension Reconstituted (Shingrix)Indicat ions:Need for shingles vaccine Inject 0.5 mL into a large muscle now and repeat dose in 60 to 180 days 1 Each 1 3 08/12/19 24 Discontinued Rosuvastatin Calcium 10 MG Oral Tablet (Crestor)Indicati ons:Dyslipidemia Take 1 Tablet by mouth in the morning. 90 Tablet 1 3 08/12/19 24 Discontinued(Ref ill) documented as of this encounter (statuses as of 08/12/2023) Active Problems Problem Noted Date Diagnosed Date Lung mass 02/02/2023 Protein-calorie malnutrition 12/01/2022 Kidney disease, chronic, stage IV (GFR 15-29 ml/ min) 11/08/2022 Overview: Per CKD protocol Idiopathic chronic gout of multiple sites withou t tophus 08/04/2022 Carpal tunnel syndrome of left wrist 08/04/2022 HTN, goal below 140/90 12/13/2018 Dyslipidemia 12/13/2018 documented as of this encounter (statuses as of 08/12/2023) Resolved Problems Problem Noted Date Diagnosed Date Resolved Date Abnormal chest CT 02/02/2023 02/02/2023 documented as of this encounter (statuses as of 08/12/2023) Immunizations Name Administration Dates Next Due COVID-19 mRNA, LNP-s, No Pre serve, 2-Dose Series (Moderna) 07/10/2021,01/26/2021,07/20/2020 Pneumococcal Conjugate Vacci ne, 20-valent ([id number]) 08/04/2022 Seasonal Influenza, Quadriva lent Hd (Fluzone [...] Sign Reading Time Taken Comments Blood Pressure 142/64 08/12/2023 11:39 AM EST Pulse 74 08/12/2023 11:39 AM EST Temperature 36.7 C (98 F) 08/12/2023 11:39 AM EST Respiratory Rate 16 08/12/2023 11:39 AM EST Oxygen Saturation 98% 08/12/2023 11:39 AM EST Inhaled Oxygen Concentration - - Weight 57.2 kg (126 lb 0.6 oz) 08/12/2023 11:39 AM EST Height 147.8 cm (4' 10.19") 08/12/2023 11:39 AM EST Body Mass Index 26.17 08/12/2023 11:39 AM EST documented in this encounter Progress Notes * Chata Eli PA-C - 08/12/2023 12:27 PM EST Subjective Leanna Garcia is a 83 year old female that presents for Follow Up 83 y/o female presents for routine follow-up. She is with her daughter. Following with nephrology for stage IV CKD. Medications reviewed. She is doing well. They are managing her BP. They have numbers to email her. Tops numbers in the 130s-140s, bottom in the 50s-60s. She denies dizziness, lightheadedness. No LE edema. Needs refills on her Crestor. Last lipids were good. Due to recheck in 3-4 months, can do with nextset of labs for nephro. Hgb and phos also due, ordered. Allopurinol does well for her gout, no recent flares. A1C was 6.4, no current medications. Hx of lung mass, decided that she doesn't want to doanything about it previously. Has living will with her today, will give to front edger to make a copy. Routine -DEXA declined -COVID booster recommended -Tdap at pharmacy Denies fevers, chills, chest pain, SOB, nausea, vomiting, diarrhea. Allergies and medications reviewed. Objective BP 142/64 | Pulse 74 | Temp 36.7 C (98 F) (Tympanic) | Resp 16 | Ht 1.478 m (4' 10.19") | Wt 57.2 kg (126 lb 0.6 oz) | SpO2 98% | BMI 26.17 kg/m | BSA 1.53 m Body mass index is 26.17 kg/m. BP Readings from Last 3 Encounters: 08/12/23 142/64 07/15/23 152/58 04/26/23 164/62 Wt Readings from Last 3 Encounters: 08/12/23 57.2 kg (126 lb 0.6 oz) 07/15/23 59.6 kg (131 lb 8 oz) 04/26/23 58.5 kg (129 lb) Physical Exam Vitals and nursing note reviewed. Constitutional: General: She is not in acute distress. Appearance: Normal appearance. HENT: Head: Normocephalic and atraumatic. Right Ear: Tympanic membrane and ear canal normal. Left Ear: Tympanic membrane and ear canal normal. Nose: No congestion or rhinorrhea. Mouth/Throat: Mouth: Mucous membranes are moist. Pharynx: No oropharyngeal exudate or posterior oropharyngeal erythema. Eyes: General: No scleral icterus. Extraocular Movements: Extraocular movements intact. Conjunctiva/sclera: Conjunctivae normal. Pupils: Pupils are equal, round, and reactive to light. Cardiovascular: Rate and Rhythm: Normal rate and regular rhythm. Heart sounds: Murmur heard. No friction rub. No gallop. Pulmonary: Breath sounds: Normal breath sounds. No wheezing, rhonchi or rales. Abdominal: General: Bowel sounds are normal. Palpations: Abdomen is soft. Tenderness: There is no abdominal tenderness. There is no right CVA tenderness or left CVA tenderness. Musculoskeletal: General: No swelling, tenderness or deformity. Normal range of motion. Cervical back: Neck supple. No muscular tenderness. Right lower leg: No edema. Left lower leg: No edema. Lymphadenopathy: Cervical: No cervical adenopathy. Skin: General: Skin is warm and dry. Capillary Refill: Capillary refill takes less than 2 seconds. Findings: No rash. Neurological: General: No focal deficit present. Mental Status: She is alert and oriented to person, place, and time. Cranial Nerves: No cranial nerve deficit. Gait: Gait normal. Deep Tendon Reflexes: Reflexes normal. Psychiatric: Mood and Affect: Mood normal. Behavior: Behavior normal. Assessment and plan 1. Dyslipidemia - Rosuvastatin Calcium 10 MG Oral Tablet (Crestor); Take 1 Tablet by mouth in the morning. Dispense: 90 Tablet; Refill: 3 - LIPID PANEL WITH DIRECT LDL IF TG IS HIGH; Future 2. Idiopathic chronic gout of multiple sites without tophus -continue allopurinol, no flares 3. HTN, goal below 140/90 -per nephrology 4. Kidney disease, chronic, stage IV (GFR 15-29 ml/min) ([facility]) - PHOSPHORUS; Future - CBC; Future 5. Lung mass -no further follow-up 6. Protein-calorie malnutrition, unspecified severity ([facility]) -states she is eating well and has a good appetite 7. Constipation, unspecified constipation type -can try miralax daily to help - Polyethylene Glycol 3350 17 GM/SCOOP Oral Powder (MiraLax); Take 17 g by mouth in the morning. Dissolve one heaping tablespoon in 8 ounces of water or juice.. Dispense: 850 g; Refill: 11 8. Heart murmur -she declines echo 9. Body mass index 26.0-26.9, adult Follow up Follow-up: Return in about 6 months (around 02/10/2024). | Check-out note: Routine follow-up Total time today including reviewing chart before the visit, pertinent labs, imaging reports, face to face time, and documentation time was 30 minutes. The above was discussed and understanding was expressed. Chata Eli PA-C documented in this encounter Nursing Notes * Shoshana Tejeda LPN - 08/12/2023 11:37 AM EST Patient presents today for a follow up. She denies any concerns. documented in this encounter Plan of Treatment Upcoming Encounters Date Type Department Care Team (Late st Contact Info) Description 02/10/2024 1:00 PM EDT [facility] [place] [address] [place] [address] Chata Eli PA-C [address] [facility] [place] [address] Scheduled Orders Name Type Priority Associated Diagnoses Orde r Schedule PHOSPHORUS Lab Routine Kidney disease, chronic, stage IV (GFR 15-29 ml/min) ([facility]) Expected: 08/12/2023 (Approximate), Expires: 08/11/2024 CBC Lab Routine Kidney disease, chronic, stage IV (GFR 15-29 ml/min) ([facility]) Expected: 08/12/2023 (Approximate), Expires: 08/11/2024 LIPID PANEL WITH DIRECT LDL IF TG IS HIGH Lab Routine Dyslipidemia Expected: 08/12/2023, Expires: 08/12/2024 Health Maintenance Due Date Last Done Comments DXA Scan 1940 DTaP,Tdap,and Td Vaccines (1 - Tdap) 1961 COVID-19 Vaccine (4 - season) 2023 07/10/2021, 01/26/2021, 07/20/2020 Hgb 08/04/2023 08/04/2022 Phosphate 08/09/2023 08/09/2022 PTH 08/26/2023 08/26/2022 GFR 01/13/2024 07/15/2023, 04/05, 04/19/2023, Additional history exists Albumin/Creatinine Ratio 01/21/2024 01/20/2023, 0212/2022 Depression Screening 02/03/2024 02/02/2023 Nephrology Referral 07/15/2024 07/15/2023 Pneumococcal Vaccine: 65+ [...] Not on filedocumented as of this encounter Visit Diagnoses Diagnosis Dyslipidemia- Primary Other and unspecified hyperlipidemia Idiopathic chronic gout of multiple sites without tophus Chronic gouty arthropathy without mention of tophus (tophi) HTN, goal below 140/90 Unspecified essential hypertension Kidney disease, chronic, stage IV (GFR 15-29 ml/min) ([facility]CC) Chronic kidney disease, Stage IV (severe) Lung mass Swelling, mass, or lump in chest Protein-calorie malnutrition, unspecified severity ([facility]) Constipation, unspecified constipation type Heart murmur Undiagnosed cardiac murmurs Body mass index 26.0-26.9, adult Body Mass Index 26.0-26.9, adult documented in this encounter Care Teams Leather Toggler Relationship Specialty Start Date End Date Chata Eli PA-C [address] [place] [address] PCP - General Physician Health And Safety Specialist 08/04/22 documented as of this encounter
--- OUTSIDE RECORDS SUMMARY | 2023-12-19 20:01 | External Medical Summary | Summary of Care ---
Author Name Unknown Organization [facility] Address [address] [facility][1][place] [address] Phone [phone] Care Team Providers Care Commissary Clerk Name Role Phone Chata Eli PA-C Primary Care Provide r Reason for Visit * Reason Comments Outpatient Testing Encounter Details Date Type Department Care Team (Late st Contact Info) Description 07/15/2023 2:50 PM EST Laboratory Laboratory [facility] [address] [place] [id number] [facility] [address] [place] [address] Arrived Allergies No known active allergiesdocumented as of this encounter (statuses as of 07/15/2023) Medications Medication Sig Dispensed Refills Start Date [...] at noon. 90 Capsule 3 02/02/2023 Active Zoster Vac Recomb Adjuvanted 50 MCG/0.5ML Intramuscular Suspension Reconstituted (Shingrix)Indication s:Need for shingles vaccine Inject 0.5 mL into a large muscle now and repeat dose in 60 to 180 days 1 Each 1 02/02/2023 Active Additional Information Patient not taking.Reported on 07/15/2023 Rosuvastatin Calcium 10 MG Oral Tablet (Crestor)Indications :Dyslipidemia Take 1 Tablet by mouth in the morning. 90 Tablet 1 02/21/2023 Active Torsemide 5 MG Oral Tablet (Demadex)Indications [...] Take by mouth daily. 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 t tophus 08/04/2022 Carpal tunnel syndrome of left wrist 08/04/2022 HTN, goal below 140/90 12/13/2018 Dyslipidemia 12/13/2018 documented as of this encounter (statuses as of 07/15/2023) Resolved Problems Problem Noted Date Diagnosed Date Resolved Date Abnormal chest CT 02/02/2023 02/02/2023 documented as of this encounter (statuses as of 07/15/2023) Immunizations Name Administration Dates Next Due COVID-19 mRNA, LNP-s, No Pre serve, 2-Dose Series (Moderna) 07/10/2021,01/26/2021,07/20/2020 Pneumococcal Conjugate Vacci ne, 20-valent ([id number]) 08/04/2022 Seasonal Influenza, Quadriva lent Hd (Fluzone [...] on file documented as of this encounter Plan of Treatment Upcoming Encounters Date Type Department Care Team (Late st Contact Info) Description 08/05/2023 4:00 PM EST Office Visit Family Practice [facility] [place] [address] [facility] [place] [address] Chata Eli PA-C [address] [facility] [place] [address] Health Maintenance Due Date Last Done Comments DXA Scan 1942 DTaP,Tdap,and Td Vaccines (1 - Tdap) 1961 COVID-19 Vaccine ( - season) 2023 07/10/2021, 01/26/2021, 07/20/2020 Hgb 08/04/2023 08/04/2022 Phosphate 08/09/2023 08/09/2022 PTH 08/26/2023 08/26/2022 GFR 11/01/2023 05/02/2023, 04/03, 01/20/2023, Additional history exists Albumin/Creatinine Ratio 01/21/2024 01/20/2023, 12/2022 Depression Screening 02/03/2024 02/02/2023 Nephrology Referral 04/26/2024 04/26/2023 Pneumococcal Vaccine: 65+ Years Completed 08/04/2022 Zoster Vaccines Completed 02/02/2023, 03/20/2019 Influenza Vaccine (FLU shot) Completed , 08/04/2022, 08/04/2022 GARDASIL-HPV IMMUNIZATION SERIES Aged Out No longer eligible based on patient's age to complete this topic Hepatitis B Aged Out No longer eligi ble based on patient's age to complete this topic MENINGOCOCCAL (MENACTRA/MENVEO) Aged Out No longer eligible based on patient's age to complete this topic documented as of this encounter Medical Devices Not on filedocumented as of this encounter Care Teams Commissary Clerk Relationship Specialty Start Date End Date Chata Eli PA-C [address] [place] [address] PCP - General Physician Human Capital Manager 08/04/22 documented as of this encounter
--- OUTSIDE RECORDS SUMMARY | 2023-12-19 20:01 | External Medical Summary | Summary of Care ---
Author Name Unknown Organization [facility] Address [address] [facility] [place] [address] Phone [phone] Care Team Providers Care Bakery Technician Name Role Phone Kel Eli PA-C Primary Care Provide r Reason for Visit * Reason Comments Return Visit Chronic Kidney Disease (CKD) Hypertension Encounter Details Date Type Department Care Team (Late st Contact Info) Description 07/15/2023 3:00 PM EST [facility] [place] [address] [facility] [place] [address] Connie Brown MD [address] [place] [address] Kidney disease, chronic, stage IV (GFR 15-29 ml/min) (HCC)*; HTN, goal below 140/90; White coat syndrome with hypertension; Uncontrolled hypertension; Metabolic acidosis; Idiopathic chronic gout of multiple sites without tophus; Nephrotic range proteinuria Allergies No known active allergiesdocumented as of this encounter (statuses as of 08/07/2023) Medications Medication Sig Dispensed Refills Start Date End Date Status amLODIPine Besylate 5 MG Oral Tablet (Norvasc) Take 1 tablet by mouth twice daily 180 Tablet 3 3 Active Lisinopril 10 MG Oral Tablet (Prinivil)Indicati ons:CKD (chronic kidney disease) stage 4, GFR 15-29 ml/min (HCC) Take 1 Tablet by mouth in the morning. 90 Tablet 5 3 Active Allopurinol 100 MG Oral Tablet (Zyloprim)Indicati ons:Kidney disease, chronic, stage IV (GFR 15-29 ml/min) (HCC),Idiopathic chronic gout of multiple sites without tophus Take 2 Tablets by mouth in the morning. 180 Tablet 11 3 Active Vitamin D3 25 MCG (1000 UT) Oral Capsule Take 1 Capsule by mouth daily at noon. 90 Capsule 3 3 Active Zoster Vac Recomb Adjuvanted 50 MCG/0.5ML Intramuscular Suspension Reconstituted (Shingrix)Indicati ons:Need for shingles vaccine Inject 0.5 mL into a large muscle now and repeat dose in 60 to 180 days 1 Each 1 3 Active Additional Information Patient not taking.Reported on 07/15/2023 Rosuvastatin Calcium 10 MG Oral Tablet (Crestor)Indicatio ns:Dyslipidemia Take 1 Tablet by mouth in the morning. 90 Tablet 1 3 Active Torsemide 5 MG Oral Tablet (Demadex)Indicatio ns:HTN, goal below 140/90 Take 1 Tablet by mouth in the morning. 90 Tablet 3 3 Active Sodium Bicarbonate 650 MG Oral TabletIndications: CKD (chronic kidney disease) stage 4, GFR 15-29 ml/min (HCC) Take 1 Tablet by mouth in the morning and 1 Tablet before bedtime. 360 Tablet 3 3 Active Magnesium Citrate 83 MG Oral Tablet Chewable Take by mouth daily. 0 4 Active Vitamin C Plus 1000 MG Oral Tablet Take by mouth. 0 07/15/19 24 Discontinued Patiromer Sorbitex Calcium 8.4 GM Oral Packet (Veltassa)Indicati ons:CKD (chronic kidney disease) stage 4, GFR 15-29 ml/min (HCC) Take 1 Packet by mouth once a day Tuesday and only. ON HOLD as of 04/21/23 30 Each 5 3 07/15/19 24 Discontinued documented as of this encounter (statuses as of 08/07/2023) Active Problems Problem Noted Date Diagnosed Date Lung mass 02/02/2023 Protein-calorie malnutrition 12/01/2022 Kidney disease, chronic, stage IV (GFR 15-29 ml/ min) 11/08/2022 Overview: Per CKD protocol Idiopathic chronic gout of multiple sites withou t tophus 08/04/2022 Carpal tunnel syndrome of left wrist 08/04/2022 HTN, goal below 140/90 12/13/2018 Dyslipidemia 12/13/2018 documented as of this encounter (statuses as of 08/07/2023) Resolved Problems Problem Noted Date Diagnosed Date Resolved Date Abnormal chest CT 02/02/2023 02/02/2023 documented as of this encounter (statuses as of 08/07/2023) Immunizations Name Administration Dates Next Due COVID-19 mRNA, LNP-s, No Pre serve, 2-Dose Series (Moderna) 07/10/2021,01/26/2021,07/20/2020 Pneumococcal Conjugate Vacci ne, 20-valent ([id number]) 08/04/2022 Seasonal Influenza, Quadriva lent Hd (Fluzone [...] Sign Reading Time Taken Comments Blood Pressure 152/58 07/15/2023 3:10 PM EST Pulse 77 07/15/2023 3:10 PM EST Temperature 36.6 C (97.9 F) 07/15/2023 3:07 PM ES T Respiratory Rate 18 07/15/2023 3:07 PM EST Oxygen Saturation 98% 07/15/2023 3:07 PM EST Inhaled Oxygen Concentration - - Weight 59.6 kg (131 lb 8 oz) 07/15/2023 3:07 PM EST Height - - Body Mass Index 27.3 02/02/2023 2:03 PM EDT documented in this encounter Patient Instructions * Patient Instructions* Connie Brown MD - 07/15/2023 3:29 PM EST -do a 3 day BP log and send results -no medication changes for now -update labs today -avoid medicines like aleve, advil, ibuprofen, aspirin more than 81 mg daily and other NSAIDS whichare not good for kidney patients. Take only tylenol (acetaminophen) up to 2000 mg daily as needed for pain or as directed by your primary care provider. -stay active as you have been documented in this encounter Progress Notes * Connie Brown MD - 07/15/2023 3:01 PM EST NEPHROLOGY CLINIC NOTE Nephrology, [place] [facility] [address] [facility] [address] 07/15/2023, 3:01 PM Patient Name: Leanna Garcia BACKGROUND: 83 year old female presEnts for followup of nephrotic range proteinuric CKD 4 with tendency to hyperkalemia. Hx of HTN x 10 yrs and w/o hx of urgency. In her 40s or 60's she had [place] Palsy. OA R knees. Also with 3.6 left lower lobe lung mass, presumed lung cancer for which patient declines further diagnostic workup or other intervention. Admitted [facility] 11/2022 w/ hyperkalemia, worsening renal failure after failing OP mgt > noted to have 3.6 cm lung mass LLL at that time. NO known family hx of kidney disease. Pt had gone back to the [facility] during and had to stay there; no medical care but did continue BP meds. While in [facility] had been on equivalents to current BP meds. Then came back to [facility] 2021. There was a period of about 2 wks w/ no BP meds b/c was out of them. Her daughter was checking BP in this timeframe using automated BP cuff and >> daughter had low dose atenolol left over and used some at times. 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 Her daughter is a nurse [facility] Some N w/ veltassa which is daily med; gets N post vetlassa around 1 pm after she comes back from the senior center at [facility]. Pt recently started on low dose ACEI w/ MTM HTN; doing smbp for them w/ SBP 140s. At January 2023 [facility] had been out of torsemide x 10 days -- daughter did update pharmacy but then pharmacy had a few days where out of stock; took time. Started back on Torse 48 hrs back. SBP were 130s most often at home then out of torse and more 150s at home off torse. On veltassa 2X weekly. Still gome GI discomfort at times w/ veltassa. Apr 2023 Veltassa has been hard to take >> makes her lose appetite, difficult to swallow. TODAY 07/15/2023: no acute interval events. No sob, no edema. Cont to go to day programs for adults in [facility] > and wlaks there. No recurrent of abd pain. Reaffirms today w/ daughter present would not want dialysis should need arise. Again no sx to date from lung mass noted for which she continues to decline treatment. Acc by her daugther today. Has series of home blood pressures with her done intermittently which generally are in the 120s and 130s a lately more in the 140 systolic. REVIEW OF SYSTEMS: No F/C, unintended wt loss or gain, energy level good doing exercise and appetite a bit less No palpitations, angina, orthopnea, LE edema No cough, wheeze, or dyspnea No N/V/D/C/abd pain; apart from N w/ veltassa still No dysuria, hematuria, nocturia >2X; no new or worrisome voiding symptoms No focal joint/muscle aches No inappropriate bleeding or bruising No orthostatic or presyncopal symptoms; no falls Current Outpatient Medications Medication Sig Dispense Refill [...] mouth daily at noon. 90 Capsule 3 Rosuvastatin Calcium 10 MG Oral Tablet (Crestor) Take 1 Tablet by mouth in the morning. 90 Tablet 1 Torsemide 5 MG Oral Tablet (Demadex) Take 1 Tablet by mouth in the morning. 90 Tablet 3 Sodium Bicarbonate 650 MG Oral Tablet Take 1 Tablet by mouth in the morning and 1 Tablet before bedtime. 360 Tablet 3 Magnesium Citrate 83 MG Oral Tablet Chewable Take by mouth daily. Zoster Vac Recomb Adjuvanted 50 MCG/0.5ML Intramuscular Suspension Reconstituted (Shingrix) Inject 0.5 mL into a large muscle now and repeat dose in 60 to 180 days (Patient not taking: Reported on 07/15/2023) 1 Each 1 No current facility-administered medications for this visit. Review of patient's allergies indicates: No Known Allergies PHYSICAL EXAMINATION: BP Readings from Last 6 Encounters: 07/15/23 152/58 04/26/23 164/62 02/02/23 154/70 01/20/23 155/69 11/22/22 148/63 11/18/22 152/62 Wt Readings from Last 6 Encounters: 07/15/23 59.6 kg (131 lb 8 oz) 04/26/23 58.5 kg (129 lb) 02/02/23 59.5 kg (131 lb 1.9 oz) 01/20/23 59.6 kg (131 lb 4.8 oz) 11/22/22 59.9 kg (132 lb 1.6 oz) 11/18/22 60.1 kg (132 lb 6.4 oz) Pulse Readings from Last 6 Encounters: 07/15/23 77 04/26/23 80 02/02/23 82 01/20/23 79 11/22/22 83 11/18/22 70 Blood pressure 158/60 with a heart rate of 77 and 152/58 with a heart rate of 77 on recheck NAD, oriented x 3, very small framed; ambulatory w/o asst Normocephalic, atraumatic, eomi nonicteric sclerae MMM Supple neck RRR w/o g/r; ? SM, hyperdynamic; no edema L basilar crackles; else CTAB w/ reasonable air mvt NT abd, +BS, soft No cyanosis or clubbing No rash No tremor, focal or global weakness; fluent speech, good history for most part LABS: Recent Labs Units 07/15/23 1538 05/02/23 1457 04/19/23 1409 01/20/23 1332 12/29/22 1516 SODIUM - [facility] mmol/L 137 139 139 137 141 POTASSIUM - [facility] mmol/L 4.7 4.8 4.6 -- 3.6 CHLORIDE - [facility] mmol/L 102 104 105 102 103 CO2 - [facility] mmol/L 21* 22 20* 22 24 BUN - [facility] mg/dL 40* 39* 39* 31* 28* CREATININE - [facility] mg/dL 2.8* 2.2* 2.4* 2.5* 2.6* ESTIMATED GLOMERULAR FILTRATION RATE - [facility] mL/min 17* 22* 20* 19* 18* Recent Labs Units 08/04/22 1108 HGB - [facility] g/dL 14.7 Recent Labs Units 07/15/23 1538 05/02/23 1457 04/19/23 1409 01/20/23 1332 10/20/22 1526 08/26/22 1621 08/09/22 1212 CALCIUM - [facility] mg/dL 9.3 9.2 9.0 9.6 < > 8.6 9.0 PHOSPHORUS - [facility] mg/dL -- -- -- -- -- -- 3.3 25-HYDROXY VITAMIN D - [facility] ng/mL -- -- -- 72 -- 9* -- PTH - [facility] pg/mL -- -- -- -- -- 131* -- < > = values in this interval not displayed. Recent Labs Units 04/19/23 1409 08/04/22 1108 HEMOGLOBIN A1C - [facility] % 6.4* 6.0* Recent Labs Units 01/20/23 1332 08/09/22 1212 ALBUMIN / CREATININE RATIO, URINE - [facility] mg/g Creat 3,293* 3,274* Recent Labs Units 08/09/22 1212 CLARITY, URINE - [facility] Clear GLUCOSE, URINE - [facility] mg/dL 100* BILIRUBIN, URINE - [facility] Negative KETONE, URINE - [facility] mg/dL Negative SPECIFIC GRAVITY, URINE - [facility] 1.020 BLOOD, URINE - [facility] Trace* PH, URINE - [facility] Units 6.0 PROTEIN, URINE - [facility] mg/dL >=300* UROBILINOGEN, URINE - [facility] mg/dL 0.2 NITRITE, URINE - [facility] Negative ESTERASE, URINE - [facility] Negative BACTERIA, URINE - [facility] /HPF 0-25 WBC, URINE - [facility] /HPF 0-2 RBC, URINE - [facility] /HPF 3-5* ASSESSMENT AND PLAN: Kidney disease, chronic, stage IV (GFR 15-29 ml/min) ([facility]) (Primary) - BASIC METABOLIC PANEL - MAGNESIUM HTN, goal below 140/90 White coat syndrome with hypertension Uncontrolled hypertension Metabolic acidosis - BASIC METABOLIC PANEL 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 | For: clinic visit w/ [place], clinic visit w/ | Check-out note: Waitlist To lab High-risk CKD 4 with nephrotic range proteinuria and challenging to control hypertension. Patient has had ESRD options education along with her daughter and firmly in consistently declines dialysis/desires conservative measures should ESRD, about. -continue lisinopril dose appropriate -labs today: These need close monitoring because she has a tendency to hypertension and is not currently taking Veltassa -potassium controlled currently with torsemide and sodium bicarbonate White coat syndrome based on discrepancies between home blood pressures and those in clinic. Blood pressure in clinic uncontrolled at home near target -continue lifestyle measures -continue lisinopril, amlodipine, torsemide current doses Continue sodium bicarbonate for metabolic acidosis related to CKD; this will slow progression of her disease No recent gout attacks. Continue allopurinol Patient Instructions -do a 3 day BP log and send results -no medication changes for now -update labs today -avoid medicines like aleve, advil, ibuprofen, aspirin more than 81 mg daily and other NSAIDS whichare not good for kidney patients. Take only tylenol (acetaminophen) up to 2000 mg daily as needed for pain or as directed by your primary care provider. -stay active as you have been Connie Brown MD Nephrology, [facility] [address] [facility] [address] CC: Ref: CONNIE BROWN[[id number]] [address] [facility] [place] [address] (office) [phone] (fax) PCP: KEL ELI [address] [facility] [place] [address] [phone] This chart was completed in part utilizing [employer] Speech Voice Recognition Software. Randomword insertions, pronoun errors, and incomplete sentences are an occasional consequence of this system due to software limitations, and ambient noise. Any questions or concerns about the content, text, or information contained within the body of this dictation should be directly addressed to the provider for clarification. documented in this encounter Nursing Notes * Amy Higuera LPN - 07/15/2023 3:06 PM EST Patient identified by verbal name and date of . Return visit No inpatient stays or ED visits since last apt Last seen [facility] 11/02/22 documented in this encounter Miscellaneous Notes * Result Encounter Note - Connie Brown MD - 08/07/2023 9:43 PM EST Pls apologize for delayed update about labs>> [place] [facility] show some worsenign of kidney function but K acceptable , no need to resume veltassa at this time; keep it on hand though. Continue sodibum bicarb. No changes for now. Keep walking! >recheck bmp in 2-3 mos documented in this encounter Plan of Treatment Upcoming Encounters Date Type Department Care Team (Late st Contact Info) Description 08/12/2023 11:20 AM EST Office Visit Family [facility] [address] [facility] [place] [address] Kel Eli PA-C [address] [facility] [place] [address] Health Maintenance Due Date Last Done Comments DXA Scan 1940 DTaP,Tdap,and Td Vaccines (1 - Tdap) 1961 COVID-19 Vaccine (4 - 2022- season) 2023 07/10/2021, 01/26/2021, 07/20/2020 Hgb 08/04/2023 08/04/2022 Phosphate 08/09/2023 08/09/2022 PTH 08/26/2023 08/26/2022 GFR 01/13/2024 07/15/2023, 04/05, 04/19/2023, Additional history exists Albumin/Creatinine Ratio 01/21/2024 01/20/2023, 12/2022 Depression Screening 02/03/2024 02/02/2023 Nephrology Referral 07/15/2024 [...] Procedure Name Priority Date/Time Associated Diagnosis Comments BASIC METABOLIC PANEL Routine 07/15/2023 3:38 PM EST Kidney disease, chronic, stage IV (GFR 15-29 ml/min) (HCC) Metabolic acidosis MAGNESIUM Routine 07/15/2023 3:38 PM EST Kidney disease, chronic, stage IV (GFR 15-29 ml/min) (HCC) documented in this encounter Results * MAGNESIUM (07/15/2023 3:38 PM EST) Magnesium 2.4 1.5 - 2.6 mg/dL 07/16/2023 4:47 AM EST [facility] Blood Venous blood specimen / Unknown Venipuncture / Unknown 07/15/2023 3:38 PM EST 07/15/2023 3:38 PM EST Connie Brown MD LAB BLOOD ORDER[facility] [address] [place] [address] * (ABNORMAL) BASIC METABOLIC PANEL (07/15/2023 3:38 PM EST) BUN 40(H) 6 - 20 mg/dL 07/16/2023 4:47 AM EST [facility] Creatinine 2.8(H) 0.5 - 1.0 mg/dL 07/16/2023 4:47 AM EST [facility] Estimated Glomerular Filtration Rate 17(L) >=60 mL/min 07/16/2023 4:47 AM EST [facility] Comment:eGFR is calculated b ased on the CKD-EPI 2020 equation Sodium 137 135 - 146 mmol/L 07/16/2023 4:47 AM EST [facility] Potassium 4.7 3.5 - 5.1 mmol/L 07/16/2023 4:47 AM EST [facility] Chloride 102 98 - 107 mmol/L 07/16/2023 4:47 AM EST [facility] CO2 21(L) 22 - 32 mmol/L 07/16/2023 4:47 AM EST [facility] Anion Gap 14 7 - 15 mmol/L 07/16/2023 4:47 AM EST [facility] Glucose 98 70 - 120 mg/dL 07/16/2023 4:47 AM EST [facility] Calcium 9.3 8.4 - 10.2 mg/dL 07/16/2023 4:47 AM EST [facility] Blood Venous blood specimen / Unknown Venipuncture / Unknown 07/15/2023 3:38 PM EST 07/15/2023 3:38 PM EST Connie Brown MD LAB BLOOD ORDERAB [facility] [address] [place] [address] documented in this encounter Visit Diagnoses Diagnosis Kidney disease, chronic, stage IV (GFR 15-29 ml/min) (HCC)- Primary Chronic kidney disease, Stage IV (severe) HTN, goal below 140/90 Unspecified essential hypertension White coat syndrome with hypertension Uncontrolled hypertension Unspecified essential hypertension Metabolic acidosis Acidosis 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
--- OUTSIDE RECORDS SUMMARY | 2023-12-19 20:01 | External Medical Summary ---
Author Name Unknown Address Unknown Organization [id number]:[facility] - [address] [place] [address] Laboratory Report Ordering Provider Test Date Status KEVIN ROSALES 07/15/2023 15:38:57 Final Observation Date Value Abnormality Reference (Units ) Status Magnesium 07/15/2023 15:38:57 2.4 1.5-2.6 (m g/dL) Final Performing Location [facility] - [address] [place] [address]
--- OUTSIDE RECORDS SUMMARY | 2023-12-19 20:01 | External Medical Summary | Summary of Care ---
Author Name Unknown Organization [facility] Address [address] [facility] [address] Phone [phone] Care Team Providers Care Director Of Family Service Center Name Role Phone Chata Eli PA-C Primary Care Provide r Reason for Visit * Reason Onset Date Comments Test Results 08/08/2023 Encounter Details Date Type Department Care Team (Late st Contact Info) Description 08/08/2023 Telephone Nephrology, [place] Fan [address] [place] [address] Lynnette Fan MD [address] [place] [address] Test Results Allergies No known active allergiesdocumented as of this encounter (statuses as of 08/08/2023) Medications Medication Sig Dispensed Refills Start Date [...] as of this encounter (statuses as of 08/08/2023) Active Problems Problem Noted Date Diagnosed Date Lung mass 02/02/2023 Protein-calorie malnutrition 12/01/2022 Kidney disease, chronic, stage IV (GFR 15-29 ml/ min) 11/08/2022 Overview: Per CKD protocol Idiopathic chronic gout of multiple sites withou t tophus 08/04/2022 Carpal tunnel syndrome of left wrist 08/04/2022 HTN, goal below 140/90 12/13/2018 Dyslipidemia 12/13/2018 documented as of this encounter (statuses as of 08/08/2023) Resolved Problems Problem Noted Date Diagnosed Date Resolved Date Abnormal chest CT 02/02/2023 02/02/2023 documented as of this encounter (statuses as of 08/08/2023) Immunizations Name Administration Dates Next Due COVID-19 mRNA, LNP-s, No Pre serve, 2-Dose Series (Moderna) 07/10/2021,01/26/2021,07/20/2020 Pneumococcal Conjugate Vacci ne, 20-valent ([id number]) 08/04/2022 Seasonal Influenza, Quadriva lent Hd (Fluzone [...] encounter Miscellaneous Notes * Telephone Encounter - Amy Higuera LPN - 08/08/2023 9:41 AM EST Daughter Nahid is aware of DR Fan's recommendations Lab order placed in [place] [facility] lab system Daughter will get done in 2-3 months as directed * Telephone Encounter - Amy Higuera LPN - 08/08/2023 9:38 AM EST ----- Message from Lynnette Fan MD sent at 08/07/2023 9:43 PM EST ----- Pls apologize for delayed update about labs>> her labs from [facility] show some worsenign of kidney [...] 11:20 AM EST Office Visit [facility] [employer] [address] [place] [address] Chata Eli PA-C [address] [facility] [place] [address] Scheduled Orders Name Type Priority Associated Diagnoses Orde r Schedule BASIC METABOLIC PANEL Lab Routine Kidney disease, chronic, stage IV (GFR 15-29 ml/min) ([facility]) Expected: 08/08/2023 (Approximate), Expires: 08/08/2024 Health Maintenance Due Date Last Done Comments [...] as of this encounter Visit Diagnoses Diagnosis Kidney disease, chronic, stage IV (GFR 15-29 ml/min) ([facility])- Primary Chronic kidney disease, Stage IV (severe) documented in this encounter Care Teams Director Of Family Service Center Relationship Specialty Start Date End Date Chata Eli PA-C [address] [place] [address] PCP - General Physician Drill Setup Operator 08/04/22 documented as of this encounter
--- OUTSIDE RECORDS SUMMARY | 2023-12-19 20:01 | External Medical Summary ---
Author Name Unknown Address Unknown Organization [id number]:[facility] - [facility] [place] [address] [place] [address] Laboratory Report Ordering Provider Test Date Status KEVIN ROSALES 07/15/2023 15:38:57 Final Observation Date Value Abnormality Reference (Units ) Status BUN 07/15/2023 15:38:57 40 Above high normal 6-20 (mg/dL) Final Creatinine 07/15/2023 15:38:57 2.8 Above high normal 0.5-1.0 (mg/dL) Final Glomerular filtration rate/1.73 sq M.predicted [Volume Rate/Area] in Serum, Plasma or Blood by Creatinine-based formula (CKD-EPI) 07/15/2023 15:38:57 17 Below low normal >=60 (mL/min) Final eGFR is calculated based on the CKD-EPI 2020 equation SODIUM 07/15/2023 15:38:57 137 135-146 (m mol/L) Final Potassium 07/15/2023 15:38:57 4.7 3.5-5.1 (m mol/L) Final Cl 07/15/2023 15:38:57 102 98-107 (mm ol/L) Final CO2 07/15/2023 15:38:57 21 Below low normal 22- 32 (mmol/L) Final Anion gap 07/15/2023 15:38:57 14 7-15 (mmol /L) Final Glucose 07/15/2023 15:38:57 98 70-120 (mg /dL) Final Calcium 07/15/2023 15:38:57 9.3 8.4-10.2 ( mg/dL) Final Performing Location LAB[facility]ATORY [facility] - [address] [place] [address]
--- OUTSIDE RECORDS SUMMARY | 2023-12-19 20:01 | External Medical Summary | Summary of Care ---
Author Name Unknown Organization [facility] [address] [facility] [address] Phone [phone] Care Team Providers Care Creative Designer Name Role Phone Chata Eli PA-C Primary Care Provide r Encounter Details Date Type Department Care Team (Late st Contact Info) Description 09/20/2023 Telephone [facility] [address] [place] [address] Anastasiya Pineda PA-C [address] [place] [address] [place] [id number] Allergies No known active allergiesdocumented as of this encounter (statuses as of 09/20/2023) Medications Medication Sig Dispensed Refills Start Date End Date Status amLODIPine Besylate 5 MG Oral Tablet (Norvasc) Take 1 tablet by mouth twice daily 180 Tablet 3 12/15/2022 Active Lisinopril 10 MG Oral Tablet (Prinivil)Indication s:CKD (chronic kidney disease) stage 4, GFR 15-29 ml/min ([facility]) Take 1 Tablet by mouth in the [...] kidney disease) stage 4, GFR 15-29 ml/min ([facility]) Take 1 Tablet by mouth in the [...] 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 Spoke w daughter and let her know results of the xray Message sent to Primary Care Provider and to the database marketing manager documented in this encounter Plan of Treatment Upcoming Encounters Date Type Department Care Team (Late st Contact Info) Description 02/10/2024 1:00 PM EDT Office Visit Family Practice [facility] [place] [address] [place] [address] Chata Eli PA-C [address] [place] [address] Scheduled Orders Name Type Priority Associated Diagnoses Orde r Schedule US ABDOMEN COMPLETE Medical Imaging STAT Right flank pain Expected: 09/21/2023, Expires: 09/26/2023 Health Maintenance Due Date Last Done Comments [...] as of this encounter Visit Diagnoses Diagnosis Right flank pain- Primary Abdominal pain, unspecified site documented in this encounter Advance Directives Documents on File Type Date Recorded Patient Air Tube Releaser Expl anation Advance Directives and Living Will 09/15/2023 signed on 08/12/2023 ADVANCE DIRECTIVE / LIVING WILL Power of Corporate Quality Engineer 09/15/2023 signed on 08/12/2023 POWER OF TIE LOADER Care Teams Creative Designer Relationship Specialty Start Date End Date Chata Eli PA-C [address] [place] [address] PCP - General Physician Supervisor Rod Placing 08/04/22 documented as of this encounter
--- OUTSIDE RECORDS SUMMARY | 2023-12-19 20:01 | External Medical Summary | Summary of Care ---
Author Name Unknown Organization [facility] Address [address] [facility] [place] [address] Phone [phone] Care Team Providers Care Sign Builder Name Role Phone Chata Eli PA-C Primary Care Provide r Reason for Visit * Reason Comments Flank Pain Encounter Details Date Type Department Care Team (Latest Contact Info) Description 09/20/2023 11:30 AM EDT Convenient Care Visit [facility] [address] [place] [address] Anastasiya Pineda [facility]-C [facility] [address] Right flank pain* Allergies No known active allergiesdocumented as of this encounter (statuses as of 09/21/2023) Medications Medication Sig Dispensed Refills Start Date [...] kidney disease) stage 4, GFR 15-29 ml/min ([facility]) Take 1 Tablet by mouth in the [...] as of this encounter (statuses as of 09/21/2023) Active Problems Problem Noted Date Diagnosed Date Lung mass 02/02/2023 Protein-calorie malnutrition 12/01/2022 Kidney disease, chronic, stage IV (GFR 15-29 ml/ min) 11/08/2022 Overview: Per CKD protocol Idiopathic chronic gout of multiple sites withou t tophus 08/04/2022 Carpal tunnel syndrome of left wrist 08/04/2022 HTN, goal below 140/90 12/13/2018 Dyslipidemia 12/13/2018 documented as of this encounter (statuses as of 09/21/2023) Resolved Problems Problem Noted Date Diagnosed Date Resolved Date Abnormal chest CT 02/02/2023 02/02/2023 documented as of this encounter (statuses as of 09/21/2023) Immunizations Name Administration Dates Next Due COVID-19 mRNA, LNP-s, No Pre serve, 2-Dose Series (Moderna) 07/10/2021,01/26/2021,07/20/2020 Pneumococcal Conjugate Vacci ne, 20-valent ([id number]) 08/04/2022 Seasonal Influenza, Quadriva lent Hd (Fluzone [...] - 09/20/2023 12:26 PM EDT Go to [facility] for xray and blood work documented in this encounter Progress Notes * Anastasiya Pineda PA-C - 09/20/2023 12:06 PM EDT Subjective: [...] \\findings sent to Primary Care Provider and child welfare caseworker US ordered Return instruction reviewed with pt [...] accompanied by: Self/daughter documented in this encounter Miscellaneous Notes * Result Encounter Note - Leonardo Pandey PA-C - 09/21/2023 8:45 PM EDT Urine negative. Not a UTI documented in this encounter Plan of Treatment Upcoming Encounters Date Type Department Care Team (Late st Contact Info) Description 09/23/2023 9:45 AM EDT Imaging Radiology [facility] [address] [place] [address] 02/10/2024 1:00 PM EDT Office Visit Family Practice [facility] [place] [address] [facility] [place] [address] Chata Eli PA-C [address] [facility] [place] [address] Health Maintenance Due Date Last Done Comments [...] Procedure Name Priority Date/Time Associated Diagnosis Comments CULTURE, URINE, QUANTITATIVE Routine 09/20/2023 1:02 PM EDT Right flank pain URINALYSIS, POINT OF CARE (ENTER/EDIT) Routine 09/20/2023 [...] Anastasiya Pineda PA-C LAB BLOOD [facility] [place] [facility] [facility] [place] [address] * CULTURE, URINE, QUANTITATIVE (09/20/2023 1:02 PM EDT) Culture Growth No significant growth 09/21/2023 6:04 PM EDT LABORATORY [facility] Urine Urine specimen obtained by clean catch procedure / Unknown Non-blood Collection / Unknown 09/20/2023 1:02 PM EDT 09/20/2023 1:02 PM EDT Anastasiya Pineda PA-C LAB [place] - G[facility] NERAL ORDERABLES LABORATORY [facility] [address] * XR ABDOMEN 1 VIEW (09/20/2023 12:58 [...] Negative Ketone, Urine Negative Negative mg/dL Specific [place], Urine 1.025 1.003 - 1.030 Blood, Urine [...] Documents on File Type Date Recorded Patient High School Foreign Language Tutor Expl anation Advance Directives and Living Will 09/15/2023 signed on 08/12/2023 ADVANCE DIRECTIVE / LIVING WILL Power of Lube Worker 09/15/2023 signed on 08/12/2023 POWER OF OBJECT ORIENTED PROGRAMMER Care Teams Sign Builder Relationship Specialty Start Date End Date Chata Eli PA-C [address] [place] [address] PCP - General Physician Curtain Worker 08/04/22 documented as of this encounter
--- OUTSIDE RECORDS SUMMARY | 2023-12-19 20:01 | External Medical Summary | Summary of Care ---
Author Name Unknown Organization [facility] Address [address] [facility] [place] [address] Phone [phone] Care Team Providers Care Bin Packer Name Role Phone Chata Eli PA-C Primary Care Provide r Reason for Visit * Reason Comments Outpatient Testing Encounter Details Date Type Department Care Team (Late st Contact Info) Description 09/20/2023 2:30 PM EDT Laboratory Laboratory, [facility] [address] [facility] [place] [address] [facility] [place] [address] Right flank pain Allergies No known active allergiesdocumented as of [...] kidney disease) stage 4, GFR 15-29 ml/min ([facility]) Take 1 Tablet by mouth in the [...] (Moderna) 07/10/2021,01/26/2021,07/20/2020 Pneumococcal Conjugate Vacci ne, 20-valent ([id number]) 08/04/2022 Seasonal Influenza, Quadriva lent Hd (Fluzone [...] Visit Family Practice [facility] [address] [facility] [place] [address] Chata Eli PA-C [address] [facility] [place] [address] Pending Results Name Type Priority Associated Diagnoses Date /Time BASIC METABOLIC PANEL Lab Routine Right flank pain 09/20/2023 1:07 PM EDT Health Maintenance Due Date Last Done Comments DXA Scan 1940 Hgb 1960 DTaP,Tdap,and Td Vaccines (1 - Tdap) 1961 COVID-19 Vaccine (4 - season) 2023 07/10/2021, 01/26/2021, 07/20/2020 Phosphate 08/09/2023 08/09/2022 PTH 08/26/2023 08/26/2022 GFR [...] this encounter Visit Diagnoses Diagnosis Right flank pain Abdominal pain, unspecified site documented in this encounter Advance Directives Documents on File Type Date Recorded Patient Multiple Wire Sawyer Expl anation Advance Directives and Living Will 09/15/2023 signed on 08/12/2023 ADVANCE DIRECTIVE / LIVING WILL Power of Medical Claims Analyst 09/15/2023 signed on 08/12/2023 POWER OF IT COMPLIANCE ANALYST Care Teams Bin Packer Relationship Specialty Start Date End Date Chata Eli PA-C [address] [place], [place] [address] PCP - General Physician Hotel Maid 08/04/22 documented as of this encounter
--- OUTSIDE RECORDS SUMMARY | 2023-12-19 20:01 | External Medical Summary | Summary of Care ---
Author Name Unknown Organization [facility] Address [address] [facility] [place] [address] Phone [phone] Care Team Providers Care Sand Caster Name Role Phone Chata Eli PA-C Primary Care Provide r Encounter Details Date Type Department Care Team (Late st Contact Info) Description 08/10/2023 Orders Only PATIENT PORTAL DO NOT DELETE THIS DEPT USED BY [place] [address] Allergies No known active allergiesdocumented as of this encounter (statuses as of 08/10/2023) Medications Medication Sig Dispensed Refills Start Date [...] kidney disease) stage 4, GFR 15-29 ml/min ([facility]) Take 1 Tablet by mouth in the morning and 1 Tablet before bedtime. 360 Tablet 3 04/26/2023 Active Magnesium Citrate 83 MG Oral Tablet Chewable Take by mouth daily. 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..] 11:20 AM EST Office Visit Family Practice [facility] [place] [address] [place] [address] Chata Eli PA-C [address] [place] [address] Health Maintenance Due Date Last Done Comments [...] filedocumented as of this encounter Care Teams Sand Caster Relationship Specialty Start Date End Date Chata Eli PA-C [address] [place] [address] PCP - General Physician Director Of Casework Services 08/04/22 documented as of this encounter
--- OUTSIDE RECORDS SUMMARY | 2023-12-19 20:01 | External Medical Summary | Summary of Care ---
Author Name Unknown Organization [facility] Address [address] [facility] [place] [address] Phone [phone] Care Team Providers Care Electrical Accessories Ii Assembler Name Role Phone Chata Eli PA-C Primary Care Provide r Reason for Visit * Reason Onset Date Comments Advice 09/21/2023 Encounter Details Date Type Department Care Team (Late st Contact Info) Description 09/21/2023 Telephone Radiology [facility] [address] [facility] [place] [address] Anastasiya Pineda PA-C 174 [facility] [place] [id number] Advice Allergies No known active allergiesdocumented as of [...] kidney disease) stage 4, GFR 15-29 ml/min ([facility]) Take 1 Tablet by mouth [...] (Moderna) 07/10/2021,01/26/2021,07/20/2020 Pneumococcal Conjugate Vacci ne, 20-valent ([id number]) 08/04/2022 Seasonal Influenza, Quadriva lent Hd (Fluzone [...] encounter Miscellaneous Notes * Telephone Encounter - Leonardo Pandey PA-C - 09/21/2023 9:42 AM EDT Changed to ABD limited. * Telephone Encounter - Cheryl Bonds RDMS - 09/21/2023 9:23 AM EDT Patient is scheduled for US ABDOMEN COMPLETE, re: assess for gallstones. This evaluates the RUQ andLUQ. If you are only interested in the gallbladder, can you please change order to US ABDOMEN LIMITED, which will evaluate the RUQ? Thank you! [facility] Ultrasound Dept documented in this encounter Plan of Treatment Upcoming Encounters Date Type Department Care Team (Late st Contact Info) Description 09/23/2023 9:45 AM EDT Imaging Radiology [facility] [address] [place] [address] 02/10/2024 1:00 PM EDT Office Visit Family Practice [facility] [place] [address] [place] [address] Chata Eli PA-C [address] [facility] [place] [address] Scheduled Orders Name Type Priority Associated Diagnoses Orde r Schedule US ABDOMEN LIMITED Medical Imaging STAT Right flank discomfort Expected: 09/21/2023, Expires: 10/22/2023 Health Maintenance Due Date Last Done Comments DXA Scan 1940 Hgb 1960 DTaP,Tdap,and Td Vaccines (1 - Tdap) 1961 COVID-19 Vaccine ( season) 2023 07/10/2021, 01/26/2021, 07/20/2020 Phosphate 08/09/2023 [...] this encounter Visit Diagnoses Diagnosis Right flank discomfort- Primary Abdominal pain, unspecified site documented in this encounter Advance Directives Documents on File Type Date Recorded Patient Candy Butcher Expl anation Advance Directives and Living Will 09/15/2023 signed on 08/12/2023 ADVANCE DIRECTIVE / LIVING WILL Power of Chair Car Driver 09/15/2023 signed on 08/12/2023 POWER OF AUTHOR'S AGENT Care Teams Electrical Accessories Ii Assembler Relationship Specialty Start Date End Date Chata lEi PA-C [address] [place] [address] PCP - General Physician Director Emergency Department 08/04/22 documented as of this encounter
--- OUTSIDE RECORDS SUMMARY | 2023-12-19 20:01 | External Medical Summary | Summary of Care ---
Author Name Unknown Organization [facility] Address [address] [facility] [place] [place] [address] Phone [phone] Care Team Providers Care Rod Buster Helper Name Role Phone Chata Eli PA-C Primary Care Provide r Reason for Visit * Reason Onset Date Comments Test Results 09/23/2023 Unexpected or In determinate Result Encounter Details Date Type Department Care Team (Late st Contact Info) Description [facility] [address] [place] [address] Leonardo Pandey PA-C [address] [employer] [place] [address] Test Results (Unexpected or Indeterminate ... Allergies No known active allergiesdocumented as of this encounter (statuses as of 09/23/2023) Medications Medication Sig Dispensed Refills Start Date [...] kidney disease) stage 4, GFR 15-29 ml/min ([facility]) Take 1 Tablet by mouth [...] as of this encounter (statuses as of 09/23/2023) Active Problems Problem Noted Date Diagnosed Date Lung mass 02/02/2023 Protein-calorie malnutrition 12/01/2022 Kidney disease, chronic, stage IV (GFR 15-29 ml/ min) 11/08/2022 Overview: Per CKD protocol Idiopathic chronic gout of multiple sites withou t tophus 08/04/2022 Carpal tunnel syndrome of left wrist 08/04/2022 HTN, goal below 140/90 12/13/2018 Dyslipidemia 12/13/2018 documented as of this encounter (statuses as of 09/23/2023) Resolved Problems Problem Noted Date Diagnosed Date Resolved Date Abnormal chest CT 02/02/2023 02/02/2023 documented as of this encounter (statuses as of 09/23/2023) Immunizations Name Administration Dates Next Due COVID-19 mRNA, LNP-s, No Pre serve, 2-Dose Series (Moderna) 07/10/2021,01/26/2021,07/20/2020 Pneumococcal Conjugate Vacci ne, 20-valent ([id number]) 08/04/2022 Seasonal Influenza, Quadriva lent Hd (Fluzone [...] encounter Miscellaneous Notes * Telephone Encounter - Bernadette Ledesma OSA - 09/23/2023 11:45 AM EDT Hello- The radiologist discovered an unexpected or indeterminate finding on Leanna Garcia ([id number]) and asks that you review the following report. Study Type:US ABDOMEN LIMITED Date of Study: 09/23/2023 IMPRESSION 1. Several hepatic cysts with the largest measuring 1.7 x 1.8 x 2.1 cm. 2. A large gallstone in the gallbladder measuring 1.6 cm. No significant gallbladder wall thickening. No biliary ductal dilation. 3. Limited evaluation of the tail of the pancreas secondary to overlying bowel gas. 4. No right hydronephrosis. Mild increased right renal cortical echogenicity may be secondary to medical renal disease or possible infection. Please correlate clinically. Please respond to this encounter to acknowledge receipt of this message and take responsibility to ensure this report is reviewed. Thank you, CAROL Vigil Client Service Rep [facility] [place] documented in this encounter Plan of Treatment Upcoming Encounters Date Type Department Care Team (Late st Contact Info) Description 02/10/2024 1:00 PM EDT Office Visit [facility] 200 [facility] [place] [address] hCata Eli PA-C 200 [facility] [place] [address] Health Maintenance Due Date Last Done Comments [...] Documents on File Type Date Recorded Patient Mortgage Loan Specialist Expl anation Advance Directives and Living Will 09/15/2023 signed on 08/12/2023 ADVANCE DIRECTIVE / LIVING WILL Power of Marketing Operations Associate 09/15/2023 signed on 08/12/2023 POWER OF EQUIPMENT DETAILER Care Teams Rod Buster Helper Relationship Specialty Start Date End Date Chata Eli PA-C [address] [place] [address] PCP - General Physician Plant Packer 08/04/22 documented as of this encounter
--- OUTSIDE RECORDS SUMMARY | 2023-12-19 20:01 | External Medical Summary | Summary of Care ---
Author Name Unknown Organization [facility] Address [address] [facility] [place] [address] Phone [phone] Care Team Providers Care Ice Cream Maker Name Role Phone Chata Eli PA-C Primary Care Provide r Reason for Visit * Reason Onset Date Comments Test Results 09/23/2023 Unexpected or In determinate Result Encounter Details Date Type Department Care Team (Late st Contact Info) Description [facility] [address] [place] [address] Leonardo Pandye PA-C [address] [employer] [place] [address] Test Results (Unexpected or Indeterminate ... Allergies [...] (Moderna) 07/10/2021,01/26/2021,07/20/2020 Pneumococcal Conjugate Vacci ne, 20-valent ([id number]) 08/04/2022 Seasonal Influenza, Quadriva lent Hd (Fluzone [...] unexpected or indeterminate finding on Leanna Garcia ([id number]) and asks that you review the following [...] CAROL Vigil Client Service Rep [facility] [place] documented in this encounter Plan of Treatment Upcoming Encounters Date Type Department Care Team (Late st Contact Info) Description 02/10/2024 1:00 PM EDT Office Visit [facility] 200 [facility] [place] [address] Chata Eli PA-C [address] [facility] [place] [address] Health Maintenance Due Date Last Done Comments [...] Documents on File Type Date Recorded Patient Bath Mix Operator Expl anation Advance Directives and Living Will 09/15/2023 signed on 08/12/2023 ADVANCE DIRECTIVE / LIVING WILL Power of Cigarette Carton Sealer 09/15/2023 signed on 08/12/2023 POWER OF ACCREDITATION COORDINATOR Care Teams Ice Cream Maker Relationship Specialty Start Date End Date Chata Eli PA-C [address] [place] [address] PCP - General Physician Stoker Installation Mechanic 08/04/22 documented as of this encounter
--- OUTSIDE RECORDS SUMMARY | 2023-12-19 20:01 | External Medical Summary | Summary of Care ---
Author Name Unknown Organization [facility] Address 100 [facility] [place] [address] Phone [phone] Care Team Providers Care Cooker Helper Name Role Phone Chata Eli PA-C Primary Care Provide r Reason for Visit * Reason Onset Date Comments Test Results 09/23/2023 Unexpected or In determinate Result Encounter Details Date Type Department Care Team (Late st Contact Info) Description [facility] [address] [place] [address] Leonardo Pandey PA-C [address] [employer] [place] [address] Test Results (Unexpected or Indeterminate ... Allergies No known active allergiesdocumented as of this encounter (statuses as of 09/26/2023) Medications Medication Sig Dispensed Refills Start Date [...] kidney disease) stage 4, GFR 15-29 ml/min ([facility]) Take 1 Tablet by mouth in [...] as of this encounter (statuses as of 09/26/2023) Active Problems Problem Noted Date Diagnosed Date Lung mass 02/02/2023 Protein-calorie malnutrition 12/01/2022 Kidney disease, chronic, stage IV (GFR 15-29 ml/ min) 11/08/2022 Overview: Per CKD protocol Idiopathic chronic gout of multiple sites withou t tophus 08/04/2022 Carpal tunnel syndrome of left wrist 08/04/2022 HTN, goal below 140/90 12/13/2018 Dyslipidemia 12/13/2018 documented as of this encounter (statuses as of 09/26/2023) Resolved Problems Problem Noted Date Diagnosed Date Resolved Date Abnormal chest CT 02/02/2023 02/02/2023 documented as of this encounter (statuses as of 09/26/2023) Immunizations Name Administration Dates Next Due COVID-19 mRNA, LNP-s, No Pre serve, 2-Dose Series (Moderna) 07/10/2021,01/26/2021,07/20/2020 Pneumococcal Conjugate Vacci ne, 20-valent ([id number]) 08/04/2022 Seasonal Influenza, Quadriva lent Hd (Fluzone [...] Telephone Encounter - Leonardo Pandey PA-C - 09/26/2023 10:18 AM EDT See TE from MISSAEL Pineda on 09/23 * Telephone Encounter - Bernadette Ledesma OSA - 09/23/2023 11:45 AM EDT Hello- The radiologist discovered an unexpected or indeterminate finding on Leanna Garcia ([id number]) and asks that you review the following [...] Thank you, CAROL Vigil Client Service Rep [facility] documented in this encounter Plan of Treatment Upcoming Encounters Date Type Department Care Team (Late st Contact Info) Description 02/10/2024 1:00 PM EDT Office Visit [facility] [place] 200 [facility] [place] [address] Chata Eli PA-C [address] [facility] [place] [address] Health Maintenance Due Date Last Done Comments DXA Scan 1940 Hgb 1960 DTaP,Tdap,and Td Vaccines (1 - Tdap) 1961 COVID-19 Vaccine ( - 2022- season) 2023 07/10/2021, 01/26/2021, 07/20/2020 [...] Documents on File Type Date Recorded Patient Gut Snatcher Expl anation Advance Directives and Living Will 09/15/2023 signed on 08/12/2023 ADVANCE DIRECTIVE / LIVING WILL Power of Sugar Chipper Machine Operator 09/15/2023 signed on 08/12/2023 POWER OF HALL WORKER Care Teams Cooker Helper Relationship Specialty Start Date End Date Chata Eli PA-C [address] [place] [address] PCP - General Physician Machine Cell Tuber 08/04/22 documented as of this encounter
--- OUTSIDE RECORDS SUMMARY | 2023-12-19 20:01 | External Medical Summary ---
Author Name Unknown Address Unknown Organization [id number]:[facility] [place] [address] [place] [address] Laboratory Report Ordering Provider Test Date Status DANILO WALL 09/20/2023 13:02:08 Final Observation Date Value Abnormality Reference (Units) Status Bacteria identified in Specimen by Culture 09/20/2023 13:02:08 No significant growth Final Test: Culture, Urine, Quanti tative
Specimen Source: Urine, Clean Catch
Specimen Type: Urine
Specimen Date: 09/20/2023 1:02 PM
Result Date: 09/21/2023 6:04 PM
Result Status: Final result
Resulting Lab: [facility] [place]
[address]
[place] [id number]

CULTURE

No significant growth

null Performing Location [facility] [place] [address] [place] [address]
--- OUTSIDE RECORDS SUMMARY | 2023-12-19 20:01 | External Medical Summary ---
Author Name Unknown Address Unknown Organization [id number]:[facility] [address] [place] [id number] Laboratory Report Ordering Provider Test Date Status DANILO WALL 09/20/2023 13:07:30 Final Observation Date Value Abnormality Reference (Units ) Status BUN 09/20/2023 13:07:30 38 Above high normal 6-20 (mg/dL) Final Creatinine 09/20/2023 13:07:30 2.6 Above high normal 0.5-1.0 (mg/dL) Final Glomerular filtration rate/1.73 sq M.predicted [Volume Rate/Area] in Serum, Plasma or Blood by Creatinine-based formula (CKD-EPI) 09/20/2023 13:07:30 18 Below low normal >=60 (mL/min) Final eGFR is calculated based on the CKD-EPI 2020 equation SODIUM 09/20/2023 13:07:30 133 Below low normal 135 -146 (mmol/L) Final Potassium 09/20/2023 13:07:30 5.0 3.5-5.1 (m mol/L) Final Cl 09/20/2023 13:07:30 96 Below low normal 98- 107 (mmol/L) Final CO2 09/20/2023 13:07:30 20 Below low normal 22- 32 (mmol/L) Final Anion gap 09/20/2023 13:07:30 17 Above high normal 7- 15 (mmol/L) Final Glucose 09/20/2023 13:07:30 111 70-120 (mg /dL) Final Calcium 09/20/2023 13:07:30 9.4 8.4-10.2 ( mg/dL) Final Performing Location [facility]ORY [facility] [address] [place] [id number]
[2023-12-19 20:14] LABS: BUN Creatinine Ratio 17.3 (10-20); Creatinine Clr Calc Pharmacy 12.8 ml/min; Est GFR (African American) 18.3 ml/min; Est GFR (Non-African American) 15.7 ml/min; Potassium 4.7 mmol/L (3.5-5.1)
[2023-12-19] MEDS: SODIUM CHLORIDE 0.9% 1,000 ML IV SCH (21:01)
[2023-12-19] MEDS: amLODIPine BESYLATE 5 MG TAB PO SCH (21:55)
[2023-12-19] MEDS: SODIUM BICARBONATE 650 MG TAB PO SCH (21:56)
--- NOTE | 2023-12-19 22:27 | CT Scan Report ---
Exam(s): CT CHEST Without Contrast EXAM: CT Chest Without Intravenous Contrast CLINICAL HISTORY: Reason for exam: lung lesion; hyponatremia. TECHNIQUE: Axial computed tomography images of the chest without intravenous contrast. CTDI is 8 mGy and DLP is 248 mGy-cm. Automated exposure control was utilized for the study. A dose lowering technique was utilized adhering to the principles of ALARA. COMPARISON: Chest CT 11/03/2022 FINDINGS: Lungs: Increased size of the rounded fairly well-circumscribed mass within the left lower lobe today measuring 3.5 x 3.3 cm, previously 3.2 x 2.9 cm when measured similarly. Subpleural groundglass nodularity at the left lung base appears similar to the prior study. Additional scattered subsegmental atelectasis within the right lower lobe, right middle lobe, and lingula. No other suspicious pulmonary nodule. Pleural space: No pleural effusion or pneumothorax. Heart: Unremarkable. Bones/joints: No acute findings. Soft tissues: Unremarkable. Vasculature: Unremarkable. Lymph nodes: No adenopathy. IMPRESSION: 1. Increased size of the rounded fairly well-circumscribed mass within the left lower lobe today measuring 3.5 x 3.3 cm, previously 3.2 x 2.9 cm. Although it is slow growing, bronchogenic carcinoma remains a diagnosis of exclusion. Consider percutaneous biopsy if one has not already been performed. 2. Subpleural groundglass nodularity at the left lung base appears similar to the prior study. Nonspecific infectious/inflammatory etiologies on the differential as is dependent atelectasis. 3. No adenopathy. Electronically signed by: Gigi Espana MD 12/19/23 22:26 PM
[2023-12-20 00:59] LABS: BUN Creatinine Ratio 17.1 (10-20); Calcium 8.9 mg/dl (8.6-10.3); Creatinine Clr Calc Pharmacy 13.5 ml/min; Est GFR (African American) 19.5 ml/min; Est GFR (Non-African American) 16.8 ml/min; Potassium 4.5 mmol/L (3.5-5.1)
[2023-12-20 06:44] LABS: BUN Creatinine Ratio 17.6 (10-20); Creatinine Clr Calc Pharmacy 14.6 ml/min; Phosphorus 5.1 mg/dl (2.5-4.9); Potassium 4.8 mmol/L (3.5-5.1)
[2023-12-20 07:08] LABS: Hematocrit (blood only) 30.4 % (37.0-47.0); Hemoglobin 10.5 g/dl (12.0-16.0); Mean Corpuscular Hemoglobin 28.2 pg (25.0-34.0); Mean Corpuscular Hgb Conc 34.5 g/dL (32.0-36.0); Mean Corpuscular Volume 81.7 fL (80.0-100.0); Mean Platelet Volume 11.4 fL (9.4-12.4); Platelet Count 125 K/uL (130-400); Platelet Estimate Normal (Normal); RDW Coefficient of Variation 13.5 % (11.5-14.5); RDW Standard Deviation 40.2 fL (36.4-46.3); Red Blood Count 3.72 M/uL (4.20-5.40); White Blood Count 6.52 K/ul (4.8-10.8)
[2023-12-20 08:23] LABS: Appearance Urine Clear (Clear); Bacteria Urine Automated None Seen (None Seen); Bilirubin Urine Negative (Negative); Blood Urine Trace (Negative); Cast Urine Automated 0-2 /lpf (0-2); Color Urine Yellow; Epithelial Cell Urine Auto 0-2 /hpf (0-2); Glucose Urine UA Negative (Negative); Ketones Urine Negative (Negative); Leukocyte Esterase Urine Negative (Negative); Nitrite Urine Negative (Negative); Protein Urine 3+ (Negative); RBC Urine Automated 0-2 /hpf (0-2); Specific Gravity Urine 1.007 (1.000-1.030); Urobilinogen Urine Negative (Negative); WBC Urine Automated 0-5 /hpf (0-5); pH Urine 7.5 (4.5-7.5)
[2023-12-20] MEDS: allopurinoL 100 MG TAB PO SCH (08:49)
[2023-12-20] MEDS: MAGNESIUM OXIDE 400 MG TAB PO SCH (08:50)
[2023-12-20] MEDS: CHOLECALCIFEROL 125 MCG (5,000 UNITS) TAB PO SCH (08:50)
[2023-12-20] MEDS: lisinopril 10 MG TAB PO SCH (08:50)
[2023-12-20] MEDS: ROSUVASTATIN CALCIUM 10 MG TAB PO SCH (08:51)
[2023-12-20] MEDS ORDERED: TORSEMIDE 20 MG TAB PO SCH (09:00)
--- NOTE | 2023-12-20 09:10 | Hospitalist Progress Note ---
Date of Service December 20, 2023 Assessment & Plan (1) Acute hyponatremia: (2) Abnormal chest CT: (3) HTN (hypertension): (4) CKD (chronic kidney disease), stage IV: Plan Pt is an 83yoF with PMhx significant for for HTN, hyperlipidemia, prediabetes, CKD (baseline creatinine 2s), gout, pulmonary mass admitted with hyponatremia. Acute hyponatremia: Serum sodium 127 Consider in the setting of malignancy vs protein calorie malnourishment. Started on LR at 80 mL/h x 2 bags; reassess Check urine Osm, urine sodium Patient with history of chest CT 11/23 3.9 x 3.6 x 3.2 cm round mass lesion left lower lobe. Continue to monitor, avoid overcorrection Consider Nephrology input Currently improved Lung Mass Lung mass noted on repeat Chest CT- increasing in size, bronchogenic carcinoma diagnosis of exclusion Lung mass chest CT November 2022: 3.9 X3.6X 3.2 cm groundglass lesion LLL Pulmonology consulted, appreciate recs Hyperphosphatemia mild Likely in setting of CKD Continue to monitor Anemia Hgb 10-11 AM anemia panel (iron, b12 and folate) Continue to monitor H/H HTN: Takes Amlodipine and Lisinopril Continue to monitor CKD IV: Follows with Dr. Fan Serum creatinine 2.60; baseline 2.1-2.3 Continue to monitor Disposition: PCP: Chata Eli Code Status: DNR/DNI DVT prophylaxis: consider chemical if no prcoedure required Admission and Anticipated Discharge Date Admission Date: December 19, 2023 Results & Data Results & Data Vital Signs (Past 12 Hours) Vital Signs Temp Pulse Pulse Resp BP BP Pulse Ox 12/20/23 07:58 36.5 C 66 18 170/69 H 98 12/20/23 02:27 70 12/20/23 02:10 36.5 C 65 18 121/83 98 12/20/23 01:43 12/19/23 23:34 66 12/19/23 22:30 73 12 147/57 H 12/19/23 22:00 85 23 164/55 H 96 12/19/23 22:00 85 15 164/55 H 99 O2 Del Method 12/20/23 07:58 Room Air 12/20/23 02:27 12/20/23 02:10 Room Air 12/20/23 01:43 Room Air 12/19/23 23:34 12/19/23 22:30 12/19/23 22:00 Room Air 12/19/23 22:00 Room Air Diagnostic Findings Chest CT 12/19/23 18:23 Exam(s): CT CHEST Without Contrast EXAM: CT Chest Without Intravenous Contrast CLINICAL HISTORY: Reason for exam: lung lesion; hyponatremia. TECHNIQUE: Axial computed tomography images of the chest without intravenous contrast. CTDI is 8 mGy and DLP is 248 mGy-cm. Automated exposure control was utilized for the study. A dose lowering technique was utilized adhering to the principles of ALARA. COMPARISON: Chest CT 11/03/2022 FINDINGS: Lungs: Increased size of the rounded fairly well-circumscribed mass within the left lower lobe today measuring 3.5 x 3.3 cm, previously 3.2 x 2.9 cm when measured similarly. Subpleural groundglass nodularity at the left lung base appears similar to the prior study. Additional scattered subsegmental atelectasis within the right lower lobe, right middle lobe, and lingula. No other suspicious pulmonary nodule. Pleural space: No pleural effusion or pneumothorax. Heart: Unremarkable. Bones/joints: No acute findings. Soft tissues: Unremarkable. Vasculature: Unremarkable. Lymph nodes: No adenopathy. IMPRESSION: 1. Increased size of the rounded fairly well-circumscribed mass within the left lower lobe today measuring 3.5 x 3.3 cm, previously 3.2 x 2.9 cm. Although it is slow growing, bronchogenic carcinoma remains a diagnosis of exclusion. Consider percutaneous biopsy if one has not already been performed. 2. Subpleural groundglass nodularity at the left lung base appears similar to the prior study. Nonspecific infectious/inflammatory etiologies on the differential as is dependent atelectasis. 3. No adenopathy. Electronically signed by: Gigi Espana MD 12/19/23 22:26 PM
--- NOTE | 2023-12-20 15:37 | Discharge Summary ---
Discharge Summary Date of Service December 20, 2023 Principal Dx & Hospital Course #1 = Principal Diagnosis (1) Acute hyponatremia: (2) Abnormal chest CT: (3) HTN (hypertension): (4) CKD (chronic kidney disease), stage IV: Plan Pt is an 83yoF with PMhx significant for for HTN, hyperlipidemia, prediabetes, CKD (baseline creatinine 2s), gout, known pulmonary mass admitted with hyponatremia. Acute hyponatremia: Serum sodium 127 on admission Consider in the setting of malignancy vs protein calorie malnourishment. Started on LR at 80 mL/h x 2 bags, sodium 134 on reassessment Urine Osm 205, urine sodium 63 IVF Patient with history of lung mass, lesion left lower lobe. Monitored, avoided overcorrection, was 134 on discharge Pt desirous of discharge. Stable for discharge with close Nephrology followup. Please ensure close Nephrology followup after discharge. Lung Mass Pulmonary nodules Lung mass noted on repeat Chest CT- increasing in size, bronchogenic carcinoma diagnosis of exclusion Previous lung mass chest CT November 2022: 3.9 X3.6X 3.2 cm groundglass lesion LLL Discussed with patient and daughter who is a [facility] [place]- pt AAO, states she is 83, declining further workup once more. Daughter aware and in agreement. Discussed with remelt sugar boiler Dr Austin as well, recommended that should pt change her mind she should followup outpatient with Dr Lim who saw her last year. Pt stable from a respiratory standpoint, no increased oxygen need. Not hypoxic or SOB. Hyperphosphatemia mild Likely in setting of CKD Close Nephrology followup Anemia Hgb 10-11 Outpatient anemia panel (iron, b12 and folate) PCP followup HTN: Takes Amlodipine and Lisinopril Continue CKD IV: Follows with Dr. Fan Serum creatinine 2.60; baseline 2.1-2.3 Close pcp and nephrology followup after discharge Notes For Next Care Provider Please ensure followup with Nephrology Medication Changes From Visit None Admission HPI Per Admitting Provider Patient is an 83 year old that was at the [facility] today and after she had lunch she started to have abdominal pain and tenderness. She also reports an episode of diarrhea today. Her friend reports that she had blank staring while at the [facility]. Pt reports a good appetite. Denies tobacco, alcohol, or recreational drug use. In the ED no leukocytosis, sodium level 127, BUN 45, creatinine 2.60; baseline 2.1-2.3, lipase 93, magnesium 2.3, LFT and troponin negative. Chest CT performed 11/23 revealed 3.9 X3.6X 3.2 cm round mass lesion left lower lobe. Per gentle review of outpatient records appears that patient was declining further testing. Pt is sitting in her hospital bed in no apparent distress. She is able to answer all questions appropriately. Patient denies dizziness, SOB, chest pain, palpitations, fever, chills, visual or auditory changes, N/V/D, recent falls or trauma. Patient will be admitted for further evaluation and management of hyponatremia including IV fluids, repeat chest CT, urine osmolality, urine sodium, BMP recheck every 6 hours. Admission Exam Per Admitting Provider GENERAL: Alert and oriented x3. NAD, on RA. HEENT: No pallor, no icterus. Pupils equal, round and reactive to light. Oral mucosa moist. NECK: No JVD, no neck masses. HEART: S1 and S2 heard. Regular rate and rhythm. No murmur, no gallop. RESPIRATORY SYSTEM: Normal AP diameter. No accessory muscle use. No wheezing, no crackles. ABDOMEN: Soft, bowel sounds present, nontender, no distention. CENTRAL NERVOUS SYSTEM: No facial droop. Speech is clear. Obeys simple commands. Moves extremities. EXTREMITIES: No edema, no erythema seen. Discharge Exam General: Alert, oriented. No acute distress Skin: No noted rashes or bruises Psych: Appropriate mood and affect Neuro: No gross deficits HEENT: NC/AT Chest: Nontender to palpation. CV: RRR Resp: Breath sounds clear bilaterally, no increased effort of breathing. Abdomen: Soft, nontender Extremities: Moves extremities bilaterally appropriately Updated Medication List Medication Instructions Recorded Confirmed Type allopurinol 100 mg tablet 100 mg PO QAM 11/02/22 12/19/23 History amlodipine 5 mg tablet 5 mg PO [facility] 11/02/22 12/19/23 History cholecalciferol (vitamin D3) 125 125 mcg PO QAM 11/02/22 12/19/23 History mcg (5,000 unit) tablet (Vitamin D3) magnesium sulfate 100 mg capsule 100 mg PO QAM 11/02/22 12/19/23 History multivitamin 1 tab PO QAM 11/02/22 12/19/23 History rosuvastatin 10 mg tablet 10 mg PO [facility] 11/02/22 12/19/23 History sodium bicarbonate 650 mg tablet 650 mg PO BID 30 days #60 tabs 11/04/22 12/19/23 Rx torsemide 10 mg tablet 5 mg (1/2 x 10 mg) PO QAM 30 days 11/04/22 12/19/23 Rx #15 tabs lisinopril 10 mg tablet 10 mg PO QAM 12/19/23 12/19/23 History Hospital Stay Data Consultations 12/19/23 18:04 ED Decision to Admit Stat Diagnostic Imagining Performed 12/19/23 18:23 CT chest diagnostic wo con Routine Chest CT 12/19/23 18:23 Exam(s): CT CHEST Without Contrast EXAM: CT Chest Without Intravenous Contrast CLINICAL HISTORY: Reason for exam: lung lesion; hyponatremia. TECHNIQUE: Axial computed tomography images of the chest without intravenous contrast. CTDI is 8 mGy and DLP is 248 mGy-cm. Automated exposure control was utilized for the study. A dose lowering technique was utilized adhering to the principles of ALARA. COMPARISON: Chest CT 11/03/2022 FINDINGS: Lungs: Increased size of the rounded fairly well-circumscribed mass within the left lower lobe today measuring 3.5 x 3.3 cm, previously 3.2 x 2.9 cm when measured similarly. Subpleural groundglass nodularity at the left lung base appears similar to the prior study. Additional scattered subsegmental atelectasis within the right lower lobe, right middle lobe, and lingula. No other suspicious pulmonary nodule. Pleural space: No pleural effusion or pneumothorax. Heart: Unremarkable. Bones/joints: No acute findings. Soft tissues: Unremarkable. Vasculature: Unremarkable. Lymph nodes: No adenopathy. IMPRESSION: 1. Increased size of the rounded fairly well-circumscribed mass within the left lower lobe today measuring 3.5 x 3.3 cm, previously 3.2 x 2.9 cm. Although it is slow growing, bronchogenic carcinoma remains a diagnosis of exclusion. Consider percutaneous biopsy if one has not already been performed. 2. Subpleural groundglass nodularity at the left lung base appears similar to the prior study. Nonspecific infectious/inflammatory etiologies on the differential as is dependent atelectasis. 3. No adenopathy. Electronically signed by: Gigi Espana MD 12/19/23 22:26 PM Pending Results Patient Have Any Pending Studies at Discharge: No Discharge Instructions Given to Patient (Per Discharging Provider) Ms. Garcia, We admitted you as your sodium levels were low. We treated you with IV fluids and your sodium level is now almost normal. You indicated that you wanted to go home. We recommend close followup with your technical testing engineer/kidney doctor Dr Fan after discharge. Concerning the lung mass you already knew about, you indicated once more that you do not want anything done about it. Should you change your mind, the lung doctor/pulmonolgist Dr Lim s happy to see you in the clinic to discuss further. Please keep close follow up with your primary care provider after discharge. Please do not hesitate to come back to the emergency room if your symptoms worsen or return. It was a pleasure taking care of you while you were here. Total Time Total Time Spent Total Time Spent (In Minutes): 75
== END 2023-12-20 19:20 | disposition home or self-care (01) | DRG 641 ==
LOC: ED 13:15 → SUATTDRO 18:07 → EDINP 18:07 → 4W 12-20 01:43